=== PATIENT | male | born 1935 | race Caucasian/White ===

== ENCOUNTER 2019-06-06 05:37 | Outpatient (RCR) | payer OTHER, SELFPAY | END 2019-07-02 00:01 | LOC: ONCRAD 05:37 | PROVIDERS: Family Provider Nurse Practitioner Family; Visit Provider Radiology Radiation Oncology | DX: Z51.0 Encounter for antineoplastic radiation therapy (principal); C61 Malignant neoplasm of prostate | CPT/HCPCS: 77336; 77385 ×4 ==

== ENCOUNTER 2019-07-10 08:19 | Outpatient (RCR) | payer OTHER, SELFPAY | END 2019-08-02 23:59 | disposition home or self-care (01) | LOC: ONCMED 08:19 | PROVIDERS: Family Provider Nurse Practitioner Family; PCP Internal Medicine; Visit Provider Radiology Radiation Oncology | DX: Z76.89 Persons encountering health services in other specified circumstances (principal) ==

== ENCOUNTER 2019-08-05 05:51 | Outpatient (RCR) | payer OTHER, SELFPAY ==
[2019-08-05 09:38] LABS: Prostate Specific Antigen < 0.02 ng/mL (0-4)
[2019-08-08 16:26] LABS: Testosterone, Free 0.9 pg/mL (6.0-73.0)
== END 2019-08-31 23:59 | disposition home or self-care (01) ==
LOC: ONCMED 05:51
PROVIDERS: Family Provider Nurse Practitioner Family; PCP Internal Medicine; Visit Provider Internal Medicine Hematology & Oncology
DX: C61 Malignant neoplasm of prostate (principal); N20.0 Calculus of kidney; G89.29 Other chronic pain; M54.9 Dorsalgia, unspecified; Z79.818 Long term (current) use of other agents affecting estrogen receptors and estrogen levels; Z79.899 Other long term (current) drug therapy; Z96.649 Presence of unspecified artificial hip joint; Z92.3 Personal history of irradiation
CPT/HCPCS: 84153; 84402; G0463

== ENCOUNTER 2019-09-10 05:48 | Outpatient (RCR) | payer OTHER, SELFPAY ==
[2019-09-10 11:54] LABS: Prostate Specific Antigen < 0.02 ng/mL (0-4)
[2019-09-10 12:45] LABS: Testosterone Total 2.5 ng/dL (193-740)
--- NOTE | 2019-09-10 13:52 | ONC FU_ITS ---
Dr. Bullard follow up note Patient: Paul Rivero Unit #: [id number]: 1935 Dicatated By: Tahir Bullard M.D.Date of Visit:Sep 10, 2019 Onc Med Follow-up/Prog Note History of Present Illness: Mr. Paul Rivero, is a 83-year-old gentleman with history of elevated PSA since 2012, was under observation until recently on 12/20/2018 when his PSA gone up to 14.3 and finally underwent TRUSP/biopsy on 12/20/2018 which showed large volume 100% of 4+3 INDUSTRI[employer]ACH[employer] on both right and left, 7 cores and large-volume Omega score 4+4 at the right base, one core. Subsequently patient underwent CT scan of abdomen pelvis on 01/08/2019 which showed non-obstructing right upper pole renal calculi, and no evidence of blastic process of abdomen and pelvic bones or lymphadenopathy and bone scan done on 01/08/2019 also showed no evidence of bone metastases. As per urology evaluation, despite of patient's age he has fairly aggressive appearing prostrate cancer with large-volume Omega 8 in one core and 7 cores positive for large-volume [place] 4+3. Patient denies any bony pains patient denies any weight loss patient denies any dysuria or hematuria patient denies any poor appetite. Started on ADT with Zoladex/Casodex on 01/31/2019 and s/p concurrent radiation therapy Casodex discontinued on 05/03/2019 because of progressive hot flashes generalized weakness and fatigue and mild gynecomastia. Zoladex was also discontinued at patient's request on 05/03/2019 Came for follow-up, Complaining of generalized weakness and fatigue , gynecomastia is better but 'other' parts are still smaller. Patient is hard of hearing, denies any dysuria hematuria or new bony pains. No more hot flashes. Medications: Ibuprofen 200 mg (of 200 mg) Tablet Oral t.i.d., Multivitamin Adults 1 Tablet Oral q 7 days, Terbinafine HCl 1 Tablet (of 250 mg) Tablet Oral daily, Turmeric 1 (300 mg) Tablet Oral q 7 days Allergies: Ampicillin and Penicillins. Review of Systems: Constitutional - Appetite is good and weight is stable. No fever, chills, hot flashes, or night sweats. Energy level is fair, ENMT - Positive for sinus congestion. No mouth sores. No sore throat or difficulty swallowing, Hematologic/Lymphatic - No abnormal bruising or bleeding, Respiratory - No shortness of breath. No cough. No pleuritic pain or hemoptysis, Cardiovascular - No angina pain. No palpitations, Gastrointestinal - No nausea or vomiting. No heartburn or acid reflux. No diarrhea or constipation. No blood in the stool or black stools, Genitourinary (M) - No dysuria or hematuria. No urinary frequency. No urgency or incontinence, Musculoskeletal - Positive for joint and back pain, Neurologic - No headache or dizziness. Positive for numbness/tingling, Psychiatric - No anxiety or depression. Positive for insomnia. Vital Signs: Performed on Sep 10, 2019 13:09 Height - 69.00 in Weight - 234.0 lbs (HIGH) BSA - 2.21 sq.m BMI - 34.56 (HIGH) Temperature - 98.6 F Pulse - 88 /min Respiration - 24 /min BP - 145/77 mm(hg) (HIGH) O2 Sat - 98 % Pain - 0 Performance Status: 0 - Fully active, able to carry on all predisease activities without restrictions. (ECOG) Physical Examination: Physical Exam-Comments is not available for this patient. Lab/Imaging: Test performed on Aug 05, 2019 08:33 Testosterone, Free 0.9 pg/mL PSA < 0.02 ng/mL Test performed on May 03, 2019 08:50 Sodium 142 mmol/L Testosterone, Total < 2.5 ng/dL Potassium 3.6 mmol/L Chloride 98 mmol/L CO2 30 mmol/L Anion Gap 17.6 BUN 25 mg/dL Creatinine 1.1 mg/dL Cr Clearance (Est) 78.0600 mL/min Glucose 82 mg/dl Calcium 10.3 mg/dL Protein, Total 6.9 g/dL Albumin 4.4 g/dL Globulin 2.5 gm/dL Bilirubin, Total 0.3 mg/dL ALT (SGPT) 36 U/L AST (SGOT) 28 U/L Alkaline Phosphatase 58 U/L Impression: Prostrate cancer per biopsy/TRUSP done on 12/20/2018 which showed large volume [place] 8 in one core at right base large volume Omega score 4+3 in 7 cores, from both right and left lobes, clinical stage T 2c,N0,M0, PSA at that time of diagnosis was 14.3 CT scan of pelvis/abdomen done on 01/08/2019 showed no evidence of blastic process in abdomen and pelvis, no lymphadenopathy Nonobstructing upper pole right renal calcului. Bone scan done on same day showed no evidence of metastatic disease History of chronic back pain for which he is on disability .History of hip replacement Started on ADT with Zoladex/Casodex on 01/31/2019 s/p Concurrent radiation therapy Casodex discontinued on 05/03/2019 because of progressive generalized weakness and fatigue/hot flashes and now with gynecomastia Zoladex was discontinued after last dose given on 05/03/2019 at patient request because of related side effects, knowing the risk versus benefits Plan: Discussed with patient regarding his labs testosterone 2.5, PSA less than 0.02 Clinically, patient has no signs symptom suggestive of recurrence/progression of disease and follow-up PSA stable and less than 0.02 and testosterone is also low. Patient is complaining of generalized weakness and fatigue which could be multifactorial including but not limited to low testosterone level, considering his weight and height he may have underlying sleep apnea but patient denies. We has been having lengthy discussions regarding side effects due to low testosterone level which is a part of prostrate cancer treatment plan but somehow patient is unhappy because of related side effect due to radiation therapy and hormonal therapy which was discontinued at patient's request on 05/03/2019. In the past patient was advised to maintain active lifestyle and regular exercise Patient is following his primary care physician [facility], he was told there that his blood works looks reasonable so his symptoms could be due to prostrate cancer treatment. Patient is also having communication problems with me maybe because of my accent, patient was advised to see Dr. Treviño, medical oncologist for better communication and second opinion. Patient was also offered referred to tertiary care center for evaluation but patient declined but agreed to see Dr. Treviño. So we will transfer his care to Dr. Treviño. Signed By: Tahir Bullard M.D. <<Signature on File>>
== END 2019-10-01 23:59 | disposition home or self-care (01) ==
LOC: ONCMED 05:48
PROVIDERS: Family Provider Nurse Practitioner Family; PCP Internal Medicine; Visit Provider Internal Medicine Hematology & Oncology
DX: C61 Malignant neoplasm of prostate (principal); N20.0 Calculus of kidney; G89.29 Other chronic pain; M54.9 Dorsalgia, unspecified; Z79.899 Other long term (current) drug therapy; Z92.3 Personal history of irradiation; Z92.21 Personal history of antineoplastic chemotherapy; Z92.23 Personal history of estrogen therapy
CPT/HCPCS: 36415; 84153; 84403; G0463

== ENCOUNTER 2020-04-12 12:22 | Emergency (ER) | payer OTHER, MEDICARE, SELFPAY ==
[2020-04-12] VITALS (9 sets, daily range): BP systolic 113–179; BP diastolic 55–77; PULSE 41–66; RESP 14–99; TEMP 36.8; O2SAT 97–100; BMI 32.5
--- NOTE | 2020-04-12 12:37 | XRR_ITS ---
PROCEDURE INFORMATION: Exam: XR Chest, 1 View Exam date and time: 04/12/2020 12:38 PM Age: 84 years old Clinical indication: Other: Jaudice; Additional info: Jaundice TECHNIQUE: Imaging protocol: XR of the chest Views: 1 view. COMPARISON: No relevant prior studies available. FINDINGS: Lungs: Unremarkable. No consolidation. Pleural space: Unremarkable. No pleural effusion. No pneumothorax. Heart/Mediastinum: Unremarkable. No cardiomegaly. Bones/joints: Unremarkable. XR/XR chest 1V portable [id number] IMPRESSION: No acute findings.
--- NOTE | 2020-04-12 14:00 | CTR_ITS ---
PROCEDURE INFORMATION: Exam: CT Abdomen And Pelvis With Contrast Exam date and time: 04/12/2020 2:39 PM Age: 84 years old Clinical indication: Abdominal pain; Additional info: Abd pain/hx prostate CA TECHNIQUE: Imaging protocol: Computed tomography of the abdomen and pelvis with intravenous contrast. Radiation optimization: All CT scans at this facility use at least one of these dose optimization techniques: automated exposure control; mA and/or kV adjustment per patient size (includes targeted exams where dose is matched to clinical indication); or iterative reconstruction. Contrast material: OMNI 300; Contrast volume: 95 ml; Contrast route: INTRAVENOUS (IV); COMPARISON: [place]dom[place] o [id number] 01/08/2019 10:28 AM RADIATION DOSE METRICS: Total DLP (mGy-cm): 1446.71 FINDINGS: Liver: Findings consistent with fatty infiltration of the liver are identified. Gallbladder and bile ducts: Gallstones are identified although there are no CT findings to suggest cholecystitis. Pancreas: Normal. No ductal dilation. Spleen: Normal. No splenomegaly. Adrenals: Normal. No mass. Kidneys and ureters: There is right renal calcification. No hydronephrosis. Stomach and bowel: No bowel obstruction or wall thickening. There is stool throughout the colon. Appendix: No evidence of appendicitis. Intraperitoneal space: Unremarkable. No free air. No significant fluid collection. Vasculature: Unremarkable. No abdominal aortic aneurysm. Lymph nodes: Unremarkable. No enlarged lymph nodes. Urinary bladder: Unremarkable as visualized. Reproductive: Unremarkable as visualized. Bones/joints: There have been bilateral hip replacements which results in streak artifact.Degenerative change is identified in the spine. There is no evidence for acute fracture or malalignment. Soft tissues: There is fat in the left inguinal canal. CT/CT abdomen pelvis w con* [id number] IMPRESSION: There are no acute concerning abnormalities. Radiation Dose CTDIVOL = (mGy): DLP = 1446.71 (mGy-cm)
--- NOTE | 2020-04-12 14:00 | USR_ITS ---
PROCEDURE INFORMATION: Exam: US Abdomen, Limited; Right Upper Quadrant Exam date and time: 04/12/2020 2:01 PM Age: 84 years old Clinical indication: Other: Jaundice TECHNIQUE: Imaging protocol: US abdomen. Real time ultrasound with image documentation. Limited exam focused on the right upper quadrant. COMPARISON: CT Abdomen/Pelvis [facility] [id number] 01/08/2019 10:28 AM FINDINGS: Liver: No masses or dilated intrahepatic bowel loops seen . There is mild increased hepatic echogenicity consistent with steatosis Gallbladder: Normal. No gallstones. There is no gallbladder wall thickening. Common bile duct: Normal. No stones. No dilation. 4 mm Pancreas: Incompletely visible due to bowel gas. Right kidney: Normal. No mass. No hydronephrosis. 10.3 cm x 5.2 cm x 5.5 cm US/US gall bladder [id number] IMPRESSION: 1. Mild hepatic steatosis 2. Otherwise negative examination
--- NOTE | 2020-04-12 14:01 | W.ED.GENADLT ---
HPI - General Adult General: Chief complaint: General Medical Stated complaint: dark urined/ jaundiced x 10 days Time Seen by Provider: 04/12/20 13:33 History of Present Illness: HPI narrative: 84-year-old male presents to the emergency room with complaint of jaundice. This is been going on for the last several days. He relates it to having been on Augmentin. He has a sore at the bottom of his left forefoot. He is initially in ampicillin and Augmentin. According to some old notes he has an allergy to penicillin although I did not see in the note any description of what his allergy was. He stopped taking the Augmentin 4 days ago. He said he had initially had a rash with pruritus pruritus is still persisting but the rash is resolved. He has some diffuse mild abdominal discomfort more focused to the right upper quadrant. He is not had any vomiting he is has discolored darkened urine and alexandru colored stools. He has a history of prostate cancer he is currently completed treatment and is just on monitoring. He had previous received chemo and radiation. Onset (ago): day(s) Location: abdomen Radiation: non-radiation Severity: moderate Quality: aching Pain Consistency: intermittent Relieving factors: none Exacerbating factors: none Associated symptoms: Deny chest pain, confusion, cough, diaphoresis, decreased appetite, dyspnea, fevers/chills, headache(s), malaise, nausea, rash, palpitations, seizures, short of breath, syncope, vomiting or weakness Treatments prior to arrival: none Review of Systems Const: Denies: malaise or diaphoresis ENMT: Denies: throat pain, ear or mastoid pain, nasal discharge or nasal congestion Card: Denies: chest pain, palpitations or syncope Resp: Denies: dyspnea GI: Denies: nausea or vomiting : Denies: flank pain, dysuria, urinary frequency or urinary urgency Skin/Breast: Denies: rash Neuro: Denies: headache(s) or confusion PFSH ED PFSH: Medical History Gout Hyperlipidemia Hypertension Osteoarthritis Prostate CA Surgical History History of hip replacement, total Bilateral History of knee replacement Left History of orchiectomy Social History (Reviewed 10/11/20 @ 16:48 by RALPH Magana Smoking and tobacco status: current every day smoker Second hand smoke exposure: No Smoking risk assessment/counseling performed?: Yes Alcohol intake: current Alcohol intake frequency: few times a week Desire information about alcohol rehabilitation?: No Counseling given: No Desire information about substance/drug rehabilitation?: No Counseling given: No Adopted: No Caregiver/support person: No Lives independently: Yes Household members: spouse Housing: House Marital status: Number of children: 6 service: Yes branch: [employer] Current occupational status: retired History of recent travel: No Current gender identity: Male Physical Exam Const: COMMON NORMALS: no acute distress GENERAL APPEARANCE: cooperative and comfortable ORIENTATION/CONSCIOUSNESS: Yes awake, Yes oriented to person, Yes oriented to place and Yes oriented to time HENMT: COMMON NORMALS: normocephalic, atraumatic and hearing grossly normal bilaterally HEAD & SCALP: normocephalic and atraumatic Eye: COMMON NORMALS: Equal, round and reactive pupils present, EOMs intact bilaterally and no scleral icterus SCLERA: scleral abnormal (Icteric) PUPIL: Yes Equal, round and reactive pupils present Neck/C-Spine: COMMON NORMALS: full ROM, no lymphadenopathy, supple and no JVD Lymph: LYMPHATIC: no lymphadenopathy noted and no lymphedema noted Resp: COMMON NORMALS: normal respiratory effort, No retractions, No use of accessory muscles and clear to auscultation bilaterally AUSCULTATION: clear to auscultation bilaterally Cardio: COMMON NORMALS: no JVD, regular rate, regular rhythm and No murmurs present (Cardio) RATE: regular rate RHYTHM: regular rhythm GI: COMMON NORMALS: No hepatosplenomegaly present AUSCULTATION: Yes normoactive bowel sounds PALPATION: Yes Tenderness to palpation present (GI) Details: RUQ, No Guarding due to palpation present (GI) and Yes No hepatosplenomegaly present Extremity: COMMON NORMALS: normal to inspection, capillary refill normal, no clubbing, cyanosis or edema, no calf tenderness and no pedal edema NARRATIVE EXTREMITY EXAM: Sole of left foot there is desquamation of the dermis with some healing eschar is mostly mucousy there is no evidence of infection at this time. Does not appear to be any exposure the subdermal tissues. Neuro: SENSORIUM/ORIENTATION: Yes oriented to person, Yes oriented to place and Yes oriented to time Skin: GENERAL SKIN EXAM: jaundice Course Vital Signs: Vital signs: Vital Signs Temperature 98.2 F 04/12/20 12:30 Pulse Rate 43 L 04/12/20 17:19 Respiratory Rate 16 04/12/20 17:19 Blood Pressure 158/77 04/12/20 17:19 Pulse Oximetry 100 04/12/20 17:19 MDM - General Adult MDM Narrative: Medical decision making narrative: Offered patient admission is concerned about his severe bradycardia he was down in the 40s several times where he is not on any negative inotropic's. He declines and would prefer to go home. Suspect his jaundice and liver function changes are due to the Augmentin will have him stop that the foot does not appear to be infected at this point we will get him set up for the wound care clinic and also have him set up to have a Holter monitor. Lab Data: Labs: Lab Results 04/12/20 04/12/20 04/12/20 Range/Units 13:40 13:40 13:40 WBC 5.3 (4.0-10.0) 10^3/ uL RBC 4.12 (4.1-5.3) 10^6/u L Hgb 12.7 (11.7-16.6) g/dL Hct 40.2 L (42.0-52.0) % MCV 97.6 H (80-94) fL MCH 30.8 (28.0-34.0) pg MCHC 31.6 (30.0-36.0) g/dL RDW 15.9 H (12.1-15.1) % Plt Count 191 (130-400) 10^3/c mm MPV 11.6 H (7.4-10.4) fL Neut % (Auto) 61.8 % Lymph % (Auto) 17.0 % Gooding % (Auto) 10.8 % Eos % (Auto) 7.9 % Baso % (Auto) 0.8 % Neut # (Auto) 3.28 (1.8-7.7) 10^3/u L Lymph # (Auto) 0.9 (0.8-4.8) 10^3/u L Gooding # (Auto) 0.6 (0.2-0.9) 10^3/u L Eos # (Auto) 0.4 (0.0-0.8) 10^3/u L Baso # (Auto) 0.0 (0.0-0.1) 10^3/u L Nucleated RBC % (a uto) 0 % Nucleated RBCs # 0.0 /100WBC PT 12.00 L (12.1-14.9) SECO NDS INR 0.86 (0.8-1.2) APTT 28.7 (23.9-36.7) SECO NDS Sodium 139 (136-145) mmol/L Potassium 4.0 (3.5-5.1) mmol/L Chloride 107 (98-107) mmol/L Carbon Dioxide 21 L (22-29) mmol/L Anion Gap 15.0 (5-19) BUN 25 H (8-23) mg/dL Creatinine 0.8 (0.7-1.2) mg/dL GFR Calculation Not Reportable Glucose 100 (65-115) mg/dL Calculated Osmolal ity 292 (285-295) mOsm/k g Lactate (0.5-2.2) mmol/L Calcium 9.7 (8.5-10.5) mg/dL Total Bilirubin 4.5 H (0.15-1.2) mg/dL AST 148 H (0-40) U/L ALT 310 H (0-41) U/L Alkaline Phosphata se 294 H (40-130) IU/L Creatine Kinase 140 (39-308) U/L Total Protein 6.6 (6.6-8.7) g/dL Albumin 4.1 (3.5-5.2) g/dL Globulin 2.5 (1.3-4.6) g/dL Lipase 61 H (13-60) U/L Urine Color (Yellow) Urine Appearance (CLEAR) Urine pH (5-7) Ur Specific Gravit y (1.005-1.030) Urine Protein (Negative) Urine Glucose (UA) (Normal) Urine Ketones (Negative) Urine Blood (Negative) Urine Nitrate (Negative) Urine Bilirubin (Negative) Urine Urobilinogen (Negative) mg/dL Ur Leukocyte Trice ase (Negative) Hepatitis A IgM Ab (Nonreactive) Hep Bs Antigen (Nonreactive) Hep B Core IgM Ab (Nonreactive) Hepatitis C Antibo dy (Nonreactive) 04/12/20 04/12/20 04/12/20 Range/Units 13:40 13:40 14:08 WBC (4.0-10.0) 10^3/ uL RBC (4.1-5.3) 10^6/u L Hgb (11.7-16.6) g/dL Hct (42.0-52.0) % MCV (80-94) fL MCH (28.0-34.0) pg MCHC (30.0-36.0) g/dL RDW (12.1-15.1) % Plt Count (130-400) 10^3/c mm MPV (7.4-10.4) fL Neut % (Auto) % Lymph % (Auto) % Gooding % (Auto) % Eos % (Auto) % Baso % (Auto) % Neut # (Auto) (1.8-7.7) 10^3/u L Lymph # (Auto) (0.8-4.8) 10^3/u L Gooding # (Auto) (0.2-0.9) 10^3/u L Eos # (Auto) (0.0-0.8) 10^3/u L Baso # (Auto) (0.0-0.1) 10^3/u L Nucleated RBC % (a uto) % Nucleated RBCs # /100WBC PT (12.1-14.9) SECO NDS INR (0.8-1.2) APTT (23.9-36.7) SECO NDS Sodium (136-145) mmol/L Potassium (3.5-5.1) mmol/L Chloride (98-107) mmol/L Carbon Dioxide (22-29) mmol/L Anion Gap (5-19) BUN (8-23) mg/dL Creatinine (0.7-1.2) mg/dL GFR Calculation Glucose (65-115) mg/dL Calculated Osmolal ity (285-295) mOsm/k g Lactate 0.7 (0.5-2.2) mmol/L Calcium (8.5-10.5) mg/dL Total Bilirubin (0.15-1.2) mg/dL AST (0-40) U/L ALT (0-41) U/L Alkaline Phosphata se (40-130) IU/L Creatine Kinase (39-308) U/L Total Protein (6.6-8.7) g/dL Albumin (3.5-5.2) g/dL Globulin (1.3-4.6) g/dL Lipase (13-60) U/L Urine Color Dark yellow (Yellow) Urine Appearance Clear (CLEAR) Urine pH 5 (5-7) Ur Specific Gravit y 1.020 (1.005-1.030) Urine Protein Neg (Negative) Urine Glucose (UA) Norm (Normal) Urine Ketones Negative (Negative) Urine Blood Neg (Negative) Urine Nitrate Negative (Negative) Urine Bilirubin 1+ H (Negative) Urine Urobilinogen 4 H (Negative) mg/dL Ur Leukocyte Trice ase Negative (Negative) Hepatitis A IgM Ab Non-reactive (Nonreactive) Hep Bs Antigen Non-reactive (Nonreactive) Hep B Core IgM Ab Non-reactive (Nonreactive) Hepatitis C Antibo dy Non-reactive (Nonreactive) Discharge Plan Discharge Patient Disposition: Home Clinical Impression: Jaundice, Pressure ulcer, Medication side effect, Bradycardia Condition: Stable Prescriptions: Discontinued amoxicillin-pot clavulanate [Augmentin] 875-125 mg tablet 1 tab PO Q12H Qty: 24 RF: 0 No Action acetaminophen-codeine 300-30 mg tablet 1 tab PO Q8H PRN (Reason: pain) Qty: 24 RF: 0 silver sulfadiazine [Silvadene] 1 % cream 1 applic TOPICAL BID PRN (Reason: wound healing) Qty: 400 RF: 0 Senior Probiotic 15 billion cell capsule 15,000 mmu cells PO .2 times day Qty: 60 RF: 1 MediHoney (honey) 100 % paste 1 applic TOPICAL BID Qty: 528 RF: 2 Discharge Orders: Discharge Order (Routine); Ordered 04/12/20 Ordered By: Terry Jalloh Referrals: Kings Avendano [Primary Care Provider] - Kimberley Chun [Family Provider] - Activity Restrictions/Additional Instructions: Stop Augmentin. Case management will call for referral to the wound care clinic as well as to set up a 24-hour Holter monitor. If symptoms worsen or change recheck in the emergency room. Follow-up with your primary care doctor to recheck a liver function profile in 1 week. Discharge Date/Time: 04/12/20 17:05 Coding Level of Care Code ED Chemical Etching Processor for Chg Fwd Exam Comprehensive
[2020-04-12 14:04] LABS: Basophils % 0.8 %; Eosinophils # 0.4 10^3/uL (0.0-0.8); Eosinophils % 7.9 %; Hematocrit 40.2 % (42.0-52.0); Hemoglobin 12.7 g/dL (11.7-16.6); Lymphocytes # 0.9 10^3/uL (0.8-4.8); Mean Corpuscular HGB Conc 31.6 g/dL (30.0-36.0); Mean Corpuscular Hemoglobin 30.8 pg (28.0-34.0); Mean Corpuscular Volume 97.6 fL (80-94); Mean Platelet Volume 11.6 fL (7.4-10.4); Monocytes # 0.6 10^3/uL (0.2-0.9); Monocytes % 10.8 %; Neutrophils # 3.28 10^3/uL (1.8-7.7); Neutrophils % 61.8 %; Nucleated Red Blood Cells % 0 %; Platelet Count 191 10^3/cmm (130-400); Red Blood Count 4.12 10^6/uL (4.1-5.3); Red Cell Distribution Width 15.9 % (12.1-15.1); White Blood Count 5.3 10^3/uL (4.0-10.0)
[2020-04-12 14:13] LABS: Add Urine Microscopic? NO
[2020-04-12 14:34] LABS: Alanine Aminotransferase 310 U/L (0-41); Albumin Level 4.1 g/dL (3.5-5.2); Alkaline Phosphatase 294 IU/L (40-130); Blood Urea Nitrogen 25 mg/dL (8-23); Calcium 9.7 mg/dL (8.5-10.5); Carbon Dioxide 21 mmol/L (22-29); Chloride 107 mmol/L (98-107); Creatine Phosphokinase 140 U/L (39-308); Globulin 2.5 g/dL (1.3-4.6); Glucose 100 mg/dL (65-115); Lactate (Lactic Acid level) 0.7 mmol/L (0.5-2.2); Lipase 61 U/L (13-60); Osmolality Calculated 292 mOsm/kg (285-295); Sodium 139 mmol/L (136-145); Total Bilirubin 4.5 mg/dL (0.15-1.2); Total Protein 6.6 g/dL (6.6-8.7)
[2020-04-12 14:38] LABS: Aspartate Amino Transferase 148 U/L (0-40)
[2020-04-12 14:44] LABS: INR 0.86 (0.8-1.2)
[2020-04-12 14:45] LABS: Partial Thromboplastin Time 28.7 SECONDS (23.9-36.7)
[2020-04-12 14:49] LABS: Bilirubin Urine 1+ (Negative); Blood Urine Neg (Negative); Glucose Urine UA Norm (Normal); Ketones Urine Negative (Negative); Leukocyte Esterase Urine Negative (Negative); Nitrate Urine Negative (Negative); Protein Urine Neg (Negative); Urine Appearance Clear (CLEAR); Urine Color Dark Yellow (Yellow); Urobilinogen Urine 4 mg/dL (Negative); pH Urine 5 (5-7)
[2020-04-12] MEDS: iohexol 300 mg/mL 100 mL Btl IV (15:17)
[2020-04-12 16:19] LABS: Hepatitis A Antibody IgM Non-Reactive (Nonreactive); Hepatitis B Core IgM Non-Reactive (Nonreactive); Hepatitis B Surface Antigen Non-Reactive (Nonreactive); Hepatitis C Virus Antibody Non-Reactive (Nonreactive)
--- NOTE | 2020-04-12 16:27 | ECG_ITS ---
[facility] Test Date: 2020-04-12 Pat Name: Paul Rivero Department: Room: Gender: Male Biology Teacher: : 1935 Requested By: Terry Mcfadden Order Number: [id number] Maycol MD: Brie Barcenas M.D. Measurements Intervals [place] Rate: 40 P: 28 OH: 316 QRS: -22 QRSD: 97 T: -10 QT: 459 QTc: 377 Interpretive Statements SINUS BRADYCARDIA WITH FIRST DEGREE AV BLOCK LOW QRS VOLTAGE IN PRECORDIAL LEADS [QRS DEFLECTION < 1.0 mV IN CHEST LEADS] MODERATE VOLTAGE CRITERIA FOR LVH, CONSIDER NORMAL VARIANT [MEETS CRITERIA IN ONE OF: R(aVL), S(V1), R(V5), R(V5/V6)+S(V1)] POSSIBLE ANTERIOR MYOCARDIAL INFARCTION [30 ms Q WAVE IN V3/V4, OR R < 0.2 mV IN V4], PROBABLY OLD No previous ECG available for comparison Electronically Signed On 04-12-2020 18:10:24 CDT by Brie Barcenas M.D. [id number]
[2020-04-12] MEDS: sodium chloride 0.9% 1,000 ML 999 ML IV ×2 (16:30→16:57)
--- NOTE | 2020-04-13 09:57 | DCPLANNER ---
manager restaurant had message to schedule a follow up appointment with [facility]. manager restaurant called [facility], spoke with Donita, a follow up appointment was scheduled for April at 10:00 with Kait. manager restaurant called patient and informed patient of the scheduled appointment. manager restaurant also had message to schedule a follow up appointment for an out patient 24 hour premier healthter monitor. manager restaurant faxed order to [facility], will call for appointment information.
--- NOTE | 2020-04-15 10:52 | DCPLANNER ---
manager leasing called [facility] to confirm if an appointment had been scheduled for a halter monitor. manager leasing spoke with Marisol, was told that patient does not want monitor at this time.
--- NOTE | 2020-04-29 13:57 | DCPLANNER ---
Patient had a follow up appointment for patient with Wound Care - appointment was cancelled.
== END 2020-04-12 17:05 | disposition home or self-care (01) ==
PROVIDERS: Nurse Practitioner Family; Emergency Provider Family Medicine; Family Provider Nurse Practitioner Family; PCP Internal Medicine
DX: R17 Unspecified jaundice (principal); L89.899 Pressure ulcer of other site, unspecified stage; R00.1 Bradycardia, unspecified; T50.905A Adverse effect of unspecified drugs, medicaments and biological substances, initial encounter; E78.5 Hyperlipidemia, unspecified; I10 Essential (primary) hypertension; Z85.46 Personal history of malignant neoplasm of prostate; F17.210 Nicotine dependence, cigarettes, uncomplicated
CPT/HCPCS: 12345; 71045; 74177; 76705; 80053; 80074; 81003; 82550; 83605; 83690; 85025; 85610; 85730; 93005; 96360; 99283; 99284; J7030; Q9967

== ENCOUNTER → 2020-04-21 08:06 | Outpatient (BNVA) | payer MEDICARE, OTHER, SELFPAY | PROVIDERS: Family Provider Nurse Practitioner Family; PCP Nurse Practitioner; Visit Provider Nurse Practitioner | DX: R74.8 Abnormal levels of other serum enzymes (principal) | CPT/HCPCS: 80076 ==

== ENCOUNTER → 2020-04-23 15:00 | Outpatient (BNVA) | payer MEDICARE, OTHER, SELFPAY | PROVIDERS: Family Provider Nurse Practitioner Family; PCP Nurse Practitioner; Visit Provider Nurse Practitioner | DX: Z11.59 Encounter for screening for other viral diseases (principal); R74.8 Abnormal levels of other serum enzymes; R94.5 Abnormal results of liver function studies | CPT/HCPCS: 86705; 86706; 86709; 86803; 87340 ==

== ENCOUNTER 2020-04-28 13:18 | Outpatient (CLI) | payer OTHER, SELFPAY ==
[2020-04-28 14:51] LABS: Basophils % 0.3 %; Eosinophils % 0.6 %; Hematocrit 39.6 % (42.0-52.0); Hemoglobin 12.6 g/dL (11.7-16.6); Lymphocytes # 0.7 10^3/uL (0.8-4.8); Lymphocytes % 10.8 %; Mean Corpuscular HGB Conc 31.8 g/dL (30.0-36.0); Mean Corpuscular Hemoglobin 30.6 pg (28.0-34.0); Mean Corpuscular Volume 96.1 fL (80-94); Mean Platelet Volume 11.2 fL (7.4-10.4); Monocytes # 0.4 10^3/uL (0.2-0.9); Monocytes % 5.7 %; Neutrophils # 5.63 10^3/uL (1.8-7.7); Neutrophils % 81.7 %; Nucleated Red Blood Cells % 0 %; Platelet Count 229 10^3/cmm (130-400); Red Blood Count 4.12 10^6/uL (4.1-5.3); Red Cell Distribution Width 13.9 % (12.1-15.1); White Blood Count 6.9 10^3/uL (4.0-10.0)
[2020-04-28 16:59] LABS: Testosterone Total 2.5 ng/dL (193-740); Thyroid Stimulating Hormone 1.47 uIU/mL (0.27-4.20)
[2020-04-28 17:12] LABS: Alanine Aminotransferase 127 U/L (0-41); Albumin Level 4.2 g/dL (3.5-5.2); Alkaline Phosphatase 188 IU/L (40-130); Anion Gap 11.4 (5-19); Aspartate Amino Transferase 61 U/L (0-40); Blood Urea Nitrogen 26 mg/dL (8-23); Calcium 10.5 mg/dL (8.5-10.5); Carbon Dioxide 29 mmol/L (22-29); Chloride 104 mmol/L (98-107); Globulin 2.4 g/dL (1.3-4.6); Glucose 230 mg/dL (65-115); Osmolality Calculated 302 mOsm/kg (285-295); Potassium 4.4 mmol/L (3.5-5.1); Sodium 140 mmol/L (136-145); Total Bilirubin 0.8 mg/dL (0.15-1.2); Total Protein 6.6 g/dL (6.6-8.7)
[2020-04-28 17:15] LABS: Prostate Specific Antigen 0.006 ng/mL (0-4)
--- NOTE | 2020-04-28 18:01 | ONC CON_ITS ---
Dr. Treviño New Patient Note Patient: Paul Rivero Unit #: [id number]: 1935 Dicatated By: Robb Treviño M.D.Date of Visit: Apr 28, 2020 Onc MED New Patient/Consult Referring Physician: Dr. Bladimir Mayfield M.D. Chief Complaint: Prostrate cancer History of Present Illness: This is an 84 year-old man with Omega score 7 (4+3) adenocarcinoma of the prostate, by clinical evaluation stage IIC (T2c, N0, M0), baseline PSA 14.35 ng/mL. He was known to have elevated PSA since 2012 and was under observation until recently, on 11/28/2018 when his PSA increased to 14.35 ng/mL. 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 Also present was large-volume Omega score 4+4 at the right base, [address] scan of abdomen pelvis on 01/08/2019 showed non-obstructing right upper pole renal calculi, and no evidence of blastic process of abdomen and pelvic bones or lymphadenopathy and bone scan done on 01/08/2019 also showed no evidence of bone metastases. As per urology evaluation, despite of patient's age he had fairly aggressive appearing prostrate cancer with large-volume Pittsfield 8 in 1 core and 7 cores positive for large-volume [place] 4+3, and he was recommended to undergo radiation with or without hormonal therapy. He began androgen deprivation therapy with Zoladex/Casodex on 01/31/2019. He began radiation on 04/03/2019. He received a second dosage of Zoladex on 05/03/2019. His PSA had declined to 0.04 ng/mL and his testosterone level was less than 2.5 ng/dL. At that point the Casodex was discontinued due to progressive hot flashes generalized weakness and fatigue and mild gynecomastia. He also opted not to have any further treatment with Zoladex. He completed radiation on 06/06/2019 to a total dose of 7900 cGy. His subsequent clinical course was complicated by fatigue and musculoskeletal pain, particularly in the hips, and by ongoing problems with gynecomastia and genital changes. He also complained of increased fat distribution in his abdominal area but without associated weight gain. His other medical illnesses include hypertension, hypothyroidism, GERD, degenerative arthritis, and gout. His prior surgeries include left total knee replacement, left total hip replacement, and right total hip replacement x2. He also had rotator cuff repair on the left and twice on the right. He has had a vertebral stabilization procedure. He is a non-smoker. INTERIM HISTORY: On 04/12/2020 he presented to the emergency room complaining of jaundice. At the time, he had been taking Augmentin for possible cellulitis associated with blisters on his left foot, and he also complained of having an itchy skin eruption due to ampicillin allergy. His CHEM profile did show significantly elevated total bilirubin at 4.5 mg/dL as well as significant elevation of liver enzymes, SGOT 148/40 U/L, SGPT 310/41 U/L, and alkaline phosphatase 294/130 IU/L. There were no acute findings noted on CT abdomen/pelvis or gallbladder ultrasound. He attributed it to the Augmentin, and he declined any further evaluation. He is seen now for a follow-up visit. He still has limited activity due to the problems with his left foot, but he says it is getting better. He says the skin eruption is also getting better, though it has not completely resolved. He has good appetite. He has no fever, night sweats, or hot flashes. He does not complain of shortness of breath, cough, or chest pain. He has no GI complaints. He does have frequent urination and nocturia, and he typically voids about every 2 hours. He has no dysuria or hematuria. He still has some joint pain and stiffness in his hands as well as some numbness/tingling, but he says that is also gradually improving since he has been off allopurinol. Past Medical History: His medical history consists of gastroesophageal reflux disease, gout, hypertension, hypothyroidism, and osteoarthritis. Past Surgical History: His surgical/procedural history consists of colonoscopy, left rotator cuff repair, left total knee replacement, right orchiectomy, right rotator cuff repair x 2, tonsillectomy, total left hip replacement, total right hip replacement x 2, vertebral stabilization, and TURSP / Biospy in 2019. Medications: Acidophilus 1 Capsule Oral daily, Daily Vitamin 1 Tablet Oral daily, Multivitamin Adults 1 Tablet Oral q 7 days, Turmeric 1 (300 mg) Tablet Oral q 7 days Allergies: Ampicillin and Penicillins. Social History: Mr. Rivero is and he is retired. Mr. Rivero has never smoked. He has no history of drinking. Family History: Mr. Rivero's mother at age 97: natural. Mr. Rivero's father at age 77: old age. Review Of Symptoms: Constitutional - His energy is fine, but he has limited activity due to his foot. Appetite is good and weight is stable. No fever, night sweats, or hot flashes. ECOG score is 1, ENMT - He has hearing loss. He has some sinus congestion/drainage. No mouth sores. No sore throat or difficulty swallowing, Hematologic/Lymphatic - No abnormal bruising or bleeding, Respiratory - No shortness of breath. No cough. No pleuritic pain or hemoptysis, Cardiovascular - No angina pain. No palpitations, Gastrointestinal - No nausea or vomiting. No heartburn or acid reflux. No diarrhea or constipation. No blood in the stool or black stools, Genitourinary (M) - No dysuria or hematuria. He has urinary frequency and nocturia. No urgency or incontinence, Musculoskeletal - He had developed significant joint pain and limited mobility in his hands/fingers when he was on allopurinol. It has gradually improved since he stopped the medication. He reports no other joint or bone pain, Integumentary - He has been undergoing treatment for painful blisters on the plantar aspect of his left foot, Neurologic - No headache or dizziness. He has numbness/tingling in both hands. No other focal neurologic symptoms, Psychiatric - No anxiety or depression. He has a little trouble sleeping. Vital Signs: Performed on Apr 28, 2020 13:59: 0, 33.11 (HIGH), 2.17 sq.m, 69.00 in, 98 %, 66 /min, 20 /min, 140/60 mm(hg), 97.5 F (LOW), 224.2 lbs (LOW), and Performed on Apr 30, 2019 09:15: 0. Physical Examination: Constitutional - He looks pretty good generally, Eyes - Sclerae nonicteric. Conjunctivae clear, ENMT - No lesions noted in the oral cavity, Hematologic/Lymphatic - No cervical or clavicular adenopathy, Respiratory - Lungs are clear with good air movement bilaterally, Cardiovascular - Heart rhythm is regular. There is no murmur, gallop, or rub noted, Breasts - There is mild to moderately severe gynecomastia bilaterally. There are no breast masses noted. There is no axillary adenopathy noted, Abdomen - Mildly distended and firm. Liver and spleen are not enlarged. There is no abdominal mass or ascites noted and there is no inguinal adenopathy, Extremities - No edema, Integumentary - He has some residual erythema in the intertriginous area beneath both breasts. The left foot blisters are almost completely healed, Neurologic - No focal neurologic deficits noted. Impression: 1. Patient with [place] score 7 (4+3) adenocarcinoma of the prostate, by clinical evaluation stage IIC (T2c, N0, M0), baseline PSA 14.35 ng/mL. 2. He began androgen deprivation therapy with Zoladex/Casodex on 01/31/2019. He had a very good response by PSA level. He received a second dose of Zoladex on 05/03/2019, but Casodex at that point was discontinued and he received no further Zoladex injections. 3. He began radiation to the prostate on 04/03/2019. He completed treatment on 06/06/2019 to a total dose of 7900 cGy. 4. On 04/12/2020 he presented to the emergency room with jaundice, total bilirubin 4.5 mg/dL. A specific cause for this was not determined. There were no acute findings noted on CT abdomen/pelvis or gallbladder ultrasound. At the time he had experienced a suspected allergic reaction to Augmentin. His other medical illnesses include: 5. Hypertension. 6. Hypothyroidism. 7. GERD. 8. Degenerative arthritis. 9. He has a history of gout. Patient had experienced multiple side effects with his androgen deprivation therapy. Some of these have persisted, including gynecomastia, genitalia changes, and alteration in his fat distribution. He also complains of muscle weakness/wasting. As of his follow-up visit in May 2019, he did appear to be showing a very good response to the treatment by PSA level. Plan: He will need reassessment of his prostate cancer and he will need follow-up for the recent episode of jaundice. He will have additional laboratory studies today to include CBC, comprehensive metabolic profile, TSH level, PSA level, and total testosterone level. He will have further evaluation as indicated. Signed By: Robb Treviño M.D. <<Signature on File>>
== END 2020-04-28 13:19 | disposition home or self-care (01) ==
LOC: ONCMED 13:22
PROVIDERS: PCP Nurse Practitioner; Visit Provider Internal Medicine Medical Oncology
DX: C61 Malignant neoplasm of prostate (principal); R17 Unspecified jaundice; M62.81 Muscle weakness (generalized); M62.50 Muscle wasting and atrophy, not elsewhere classified, unspecified site; N62 Hypertrophy of breast; N50.89 Other specified disorders of the male genital organs; T45.1X5D Adverse effect of antineoplastic and immunosuppressive drugs, subsequent encounter; I10 Essential (primary) hypertension; E03.9 Hypothyroidism, unspecified; K21.9 Gastro-esophageal reflux disease without esophagitis; M19.90 Unspecified osteoarthritis, unspecified site; Z87.39 Personal history of other diseases of the musculoskeletal system and connective tissue; Z92.3 Personal history of irradiation
CPT/HCPCS: 36415; 80053; 84153; 84403; 84443; 85025; 99215

== ENCOUNTER → 2020-05-25 07:54 | Outpatient (BNVA) | payer MEDICARE, OTHER, SELFPAY | PROVIDERS: PCP Nurse Practitioner; Visit Provider Nurse Practitioner | DX: R74.8 Abnormal levels of other serum enzymes (principal) | CPT/HCPCS: 80053 ==

== ENCOUNTER 2020-11-24 09:06 | Outpatient (CLI) | payer MEDICARE, OTHER, SELFPAY ==
--- NOTE | 2020-11-24 09:13 | USCV_ITS ---
Paul Rivero Age: 85 Gender: M : 1935 Exam Date: 11/24/2020 09:25 Ordering Phys: Isaura Sung MD Technologist: Exam Location: [facility] [place] Indication: DIZZINESS Risk Factors: Previous Vascular Surgery: Right Brachial BP: / Left Brachial BP: / Right Left Velocity (cm/s) Spectral Plaque Velocity (cm/s) Spectral Plaque Syst/Diast Broadening Syst/Diast Broadening 83.80/ 18.70 Prox CCA 122.40/ 13.20 72.20/ 12.65 Mid CCA 105.80/ 20.90 72.80/ 14.30 Distal CCA 86.00 / 12.10 62.80/ 14.30 Prox ICA 74.45 / 13.20 84.90/ 23.20 Mid ICA 76.10 / 19.80 78.30/ 13.20 Distal ICA 65.10 / 17.60 140.00 ECA 83.80 0.87 ICA/CCA 0.65 Antegrade Vertebral Antegrade 32.60/ 9.30 cm/s 31.00/ 8.50 cm/s Bi Subclavian 77.70 84.60 FINDINGS Comparison: none available. No significant elevation of systolic or diastolic velocities. Waveforms are normal. Minimal bilateral plaque with no elevation of velocity. CONCLUSIONS Bilateral ICA stenosis less than 50%. Mild carotid atherosclerosis. Dr. Aracelis Rivas DO (Electronically Signed) Final Date: 24 Nov 2020 10:55 S
== END 2020-11-24 09:07 | disposition home or self-care (01) ==
LOC: RAD 09:09
PROVIDERS: PCP Nurse Practitioner; Visit Provider Family Medicine
DX: R42 Dizziness and giddiness (principal)
CPT/HCPCS: 93880

== ENCOUNTER 2021-03-23 08:56 | Outpatient (CLI) | payer MEDICARE, OTHER, SELFPAY ==
--- NOTE | 2021-03-23 08:45 | USCV_ITS ---
Paul Rivero Age: 85 Gender: M : 1935 Exam Date: 03/23/2021 09:13 Ordering Phys: Tonia Solis GENERAL ACCOUNTANT-C Technologist: Lori Park Exam Location: [facility] [place] Indication: OTHER, NON SPECIFIED SOFT TISSUE DISORDER HISTORY: fungal infection LLE. PROCEDURES: Venous duplex imaging was performed in only the left lower extremity. The following venous structures were evaluated: common femoral vein, profunda vein, proximal portion of the greater saphenous vein, superficial femoral vein, and the popliteal vein. In addition, the posterior tibial and peroneal trunk were evaluated. FINDINGS: negative for lower extremity DVT in LLE. CONCLUSIONS No evidence of left lower extremity DVT. Agustín Levy MD (Electronically Signed) Final Date: 23 March 2021 17:11 S
== END 2021-03-23 08:57 | disposition home or self-care (01) ==
PROVIDERS: PCP Nurse Practitioner; Visit Provider Nurse Practitioner Family
DX: M79.89 Other specified soft tissue disorders (principal); M79.605 Pain in left leg
CPT/HCPCS: 93971

== ENCOUNTER → 2021-06-11 08:41 | Outpatient (BNVA) | payer MEDICARE, OTHER, SELFPAY | PROVIDERS: PCP Nurse Practitioner; Visit Provider Nurse Practitioner Family | DX: M25.50 Pain in unspecified joint (principal) | CPT/HCPCS: 80053; 84443; 84550; 85025; 85651; 86038; 86140; 86200; 86431 ==

== ENCOUNTER → 2021-07-15 14:50 | Outpatient (BNVA) | payer MEDICARE, OTHER, SELFPAY | PROVIDERS: PCP Specialist; Visit Provider Urology | DX: C61 Malignant neoplasm of prostate (principal); R97.20 Elevated prostate specific antigen [PSA] | CPT/HCPCS: 81003; 84153 ==

== ENCOUNTER 2021-09-03 09:56 | Outpatient (CLI) | payer MEDICARE, OTHER, SELFPAY ==
--- NOTE | 2021-09-03 10:14 | CT_ITS ---
WS: [id number] CT TEMPORAL BONES WITHOUT CONTRAST HISTORY: H66.92 - Otitis media, unspecified, left ear TECHNIQUE: Axial 1.25 mm imaging is performed through the temporal bones. High resolution 0.63 mm ref ormats were then submitted in axial, coronal and sagittal planes. DLP: 415.03 mGy-cm. All CT scans at [facility] use at least one of these dose optimization techniques: automated e xposure control; mA and/or kV adjustment per patient size (includes targeted exams where dose is matc hed to clinical indication); or iterative reconstruction. COMPARISON: 04/14/2017 RIGHT temporal bone: The mastoid air cells are well opacified with only coalescence of a few of the a ir spaces. There is no soft tissue surrounding the inner ear ossicles. There is no evidence for valentina steatoma. There is no dehiscence of the bone. No dehiscence of the carotid canal. Small amount of flu id seen within the mastoid air cells on the prior study has resolved. LEFT temporal bone: Increased soft tissue now extends throughout the LEFT mastoid air cells. New sinc e the prior examination. There is mild coalescence of the pneumatized portion of the mastoid bone. Th ere is a very small amount of soft tissue surrounding the inner ear ossicle. There is mild thickening of the tympanic membrane. There is a small amount of increased soft tissue along the incus and exten ding into Prussak space. Head of the malleus is normal. The tegmen mastoideum is intact. No osseous d estruction or dehiscence. CT/CT temporal bone wo con* [id number] IMPRESSION: 1. LEFT temporal bone: new very minimal soft tissue partially encasing the mid dle ear ossicles and extending into Prussak space. Additional mild thickening a long the tympanic membrane with increasing soft tissue throughout the mastoid a ir cells. Findings are very suspicious for early changes of cholesteatoma. Dog Daycare Provider marco a and early changes of otomastoiditis may also be considered. No bone destruc tion at this time. 2. Normal RIGHT middle ear ossicles. Previously described fluid in the RIGHT m astoid air cells has resolved.
== END 2021-09-03 09:57 | disposition home or self-care (01) ==
PROVIDERS: PCP Family Medicine; Visit Provider Otolaryngology
DX: H66.92 Otitis media, unspecified, left ear (principal)
CPT/HCPCS: 70480

== ENCOUNTER 2021-10-29 07:45 | Emergency (ER) | payer OTHER, MEDICARE, SELFPAY ==
[2021-10-29 08:02] VITALS: BP 138/60; PULSE 60; RESP 16; O2SAT 98; BMI 32.5
[2021-10-29 08:30] VITALS: BP 144/64; PULSE 55; O2SAT 93
--- NOTE | 2021-10-29 08:32 | ED_ITS ---
HPI - Ear Problem General: Chief complaint: Ear Stated complaint: left ear bleeding Time Seen by Provider: 10/29/21 07:45 History of Present Illness: Patient states that his left ear had some pus and blood this morning. He is currently under treatment by Dr. Jiang for chronic left ear problem. Patient said did not know if we had any drops of make his ear quite hurt. He has plenty of antibiotic drops. He says his ear is actually not hurting now and is not draining more. He said he did clean it with hydrogen peroxide earlier today. He said a couple pains yesterday but none until this morning when it was severe. Associated symptoms: Reports ear or mastoid pain; Denies fever(s) or headache(s) Review of Systems Const: Denies: fever(s), chills or body aches Eyes: Denies: eye discomfort ENMT: Reports: ear or mastoid pain and ear discharge (Left ear, chronic); Denies: throat pain, odynophagia, change in hearing, nasal congestion or nasal obstruction Card: Denies: chest pain Resp: Denies: dyspnea GI: Denies: abdominal pain, nausea or vomiting Skin/Breast: Denies: rash Neuro: Denies: headache(s) Psych: Denies: depression or suicidal ideation PFSH ED PFSH: Medical History Gout Hyperlipidemia Hypertension Osteoarthritis Prostate CA Surgical History History of hip replacement, total Bilateral History of knee replacement Left History of orchiectomy Family History Mother , at age 97 Bowel obstruction Father , at age 77 No problems noted. Social History Smoking and tobacco status: never smoked Alcohol intake: current Alcohol intake frequency: holidays/special occasions only Marital status: Number of children: 6 service: Yes branch: [employer] Current occupational status: retired History of recent travel: No Physical Exam Const: COMMON NORMALS: no acute distress HENMT: COMMON NORMALS: external ears normal and EAC's normal EXTERNAL EAR: Yes external ears normal EXTERNAL AUDITORY CANAL: EAC's normal TYMPANIC MEMBRANE: TM abnormal TM laterality: left (Slightly hard to visualize. No redness or pus noted presently.) Details: other (I cannot see a ruptured TM) Resp: COMMON NORMALS: normal respiratory effort Course Vital Signs: Vital signs: Vital Signs Pulse Rate 55 L 10/29/21 08:30 Respiratory Rate 16 10/29/21 08:02 Blood Pressure 144/64 10/29/21 08:30 Pulse Oximetry 93 10/29/21 08:30 MDM - Ear Medical Decision Making Chronic left TM rupture with sporadic purulent drainage treated by Dr. Jiang and will continue to be treated. Patient has antibiotics drops at home. Patient declines pain medication. Discharge Plan Discharge Patient Disposition: Home Clinical Impression: Chronic mastoiditis, left ear Condition: Stable Prescriptions: No Action tamsulosin [Flomax] 0.4 mg capsule 0.4 mg PO DAILY 0RF celecoxib [Celebrex] 200 mg capsule 200 mg PO DAILY Qty: 30 4RF Senior Probiotic 15 billion cell capsule 15,000 mmu cells PO .2 times day Qty: 60 1RF Rx Instructions: administer with a meal ciprofloxacin-dexamethasone [Ciprodex] 0.3-0.1 % drops,suspension 4 drp otic (ear) BID Qty: 7.5 12RF Rx Instructions: Apply 4 drops to the left ear twice daily sulfamethoxazole-trimethoprim [Bactrim DS] 800-160 mg tablet 1 tab PO BID 60 Days Qty: 120 0RF ofloxacin 0.3 % drops 4 drp otic (ear) BID 90 Days Qty: 10 5RF clotrimazole-betamethasone 1-0.05 % cream 1 applic topical BID Qty: 45 1RF Rx Instructions: apply 2 times daily to affected area Discharge Orders: Discharge ED (Routine); Ordered 10/29/21 Ordered By: Zane Heath Referrals: Yohana Adair MD [Primary Care Provider] - Discharge Diet: Usual diet Discharge Activity: Resume usual activity Activity Restrictions/Additional Instructions: Follow-up with Dr. Jiang as scheduled Coding Level of Care Code ED Electrical Drafter for Leigh Ann Cummings
== END 2021-10-29 08:31 | disposition home or self-care (01) ==
PROVIDERS: Emergency Provider Nurse Practitioner Family; PCP Family Medicine
DX: H70.12 Chronic mastoiditis, left ear (principal); H72.92 Unspecified perforation of tympanic membrane, left ear
CPT/HCPCS: 99281

== ENCOUNTER → 2021-11-23 11:09 | Outpatient (BNVA) | payer OTHER, SELFPAY | PROVIDERS: PCP Family Medicine; Visit Provider Otolaryngology | DX: H70.12 Chronic mastoiditis, left ear (principal); H66.92 Otitis media, unspecified, left ear; H72.12 Attic perforation of tympanic membrane, left ear; J32.0 Chronic maxillary sinusitis | CPT/HCPCS: 99214 ==

== ENCOUNTER → 2021-11-30 17:18 | Outpatient (BNVA) | payer MEDICARE, OTHER, SELFPAY | PROVIDERS: PCP Family Medicine; Visit Provider Nurse Practitioner Family | DX: L30.9 Dermatitis, unspecified (principal); R07.9 Chest pain, unspecified; R55 Syncope and collapse; R06.00 Dyspnea, unspecified; W57.XXXA Bitten or stung by nonvenomous insect and other nonvenomous arthropods, initial encounter | CPT/HCPCS: 80053; 86618; 86666; 86757 ==

== ENCOUNTER → 2021-12-01 16:45 | Outpatient (BNVA) | payer OTHER, MEDICARE, SELFPAY | PROVIDERS: PCP Family Medicine; Visit Provider Nurse Practitioner Family | DX: R73.9 Hyperglycemia, unspecified (principal) | CPT/HCPCS: 83036 ==

== ENCOUNTER 2021-12-30 09:56 | Outpatient (CLI) | payer MEDICARE, OTHER, SELFPAY ==
--- NOTE | 2021-12-30 10:00 | CT_ITS ---
WS: [id number] CT SINUSES TECHNIQUE: Noncontrast CT of the paranasal sinuses with coronal and sagittal reformatted images. CLINICAL INFORMATION: chronic sinusitis COMPARISON: None. DLP: 387.[address] scans at [facility] use at least one of these dose optimization techniques: automated e xposure control; mA and/or kV adjustment per patient size (includes targeted exams where dose is matc hed to clinical indication); or iterative reconstruction. FINDINGS: Mild nasal septal deviation measuring 3 to 4 mm. Mild mucosal thickening in the ethmoid air cells. Ma xillary sinuses are well aerated. Mild mucosal thickening in the maxillary sinuses measuring 4 mm on the LEFT. Frontal sinuses are well aerated. Mild mucosal thickening in the frontal ethmoidal recesses . Sphenoid sinus is well aerated. Sphenoid ostia appear patent. Mild narrowing of the ostiomeatal uni ts are patent. Mild mucosal thickening LEFT mastoid air cells. RIGHT mastoid air cells well aerated. Mastoid tips ar e not included on today's examination. Normal posterior nasopharynx. Cavernous carotid calcification. CT/CT sinus wo con* [id number] IMPRESSION: 1. Mild LEFT to RIGHT nasal septal deviation measuring 3 to 4 mm. 2. Mild mucosal thickening ethmoid air cells. Mild mucosal thickening along th e frontal ethmoidal recesses. Frontal sinuses are well aerated. 3. Mild mucosal thickening LEFT greater than RIGHT maxillary sinus measuring 4 mm in the LEFT maxillary sinus. 4. Sphenoid sinuses and sphenoid ostia are patent. 5. Mild mucosal thickening partially visualized LEFT mastoid air cells. 6. Normal posterior nasopharynx.
--- NOTE | 2021-12-30 10:06 | USCV_ITS ---
Paul Rivero Age: 86 Gender: M : 1935 Exam Date: 12/30/2021 10:27 Ordering Phys: Isaura Sung MD Technologist: KALEIGH Exam [place] [facility] [place] Indication: DIZZINESS Risk Factors: Previous Vascular Surgery: Right Brachial BP: / Left Brachial BP: / Right Left Velocity (cm/s) Spectral Plaque Velocity (cm/s) Spectral Plaque Syst/Diast Broadening Syst/Diast Broadening 72.80/ 12.10 Prox CCA 107.00/ 20.30 100.30/17.60 Mid CCA 103.60/ 25.40 68.40/ 13.20 Distal CCA 103.80/ 14.40 66.70/ 19.70 Prox ICA 67.80 / 13.70 56.80/ 16.90 Mid ICA 57.10 / 16.50 67.60/ 20.30 Distal ICA 63.70 / 18.70 103.40 ECA 83.40 0.67 ICA/CCA 0.63 Antegrade Vertebral Antegrade 65.30/ 17.10 cm/s 0.00 / 10.30 cm/s Tri Subclavian Tri 120.4 153.3 0 0 FINDINGS Comparison:. 11/24/20. No significant elevation of systolic or diastolic velocities. Waveforms are normal. Mild tortuosity and atherosclerosis. Antegrade vertebral arteries. CONCLUSIONS No interval change in stenosis since prior exam. Bilateral ICA stenosis less than 50%. Dr. Aracelis Rivas DO (Electronically Signed) Final Date: 30 December 2021 14:41 S
== END 2021-12-30 09:57 | disposition home or self-care (01) ==
LOC: RAD 09:58
PROVIDERS: PCP Family Medicine; Visit Provider Family Medicine
DX: J32.0 Chronic maxillary sinusitis (principal); I65.22 Occlusion and stenosis of left carotid artery
CPT/HCPCS: 70486; 93880

== ENCOUNTER → 2022-02-01 13:58 | Outpatient (BNVA) | payer MEDICARE, OTHER, SELFPAY | PROVIDERS: PCP Family Medicine; Visit Provider Internal Medicine | DX: R06.00 Dyspnea, unspecified (principal); R07.9 Chest pain, unspecified; I10 Essential (primary) hypertension; E78.5 Hyperlipidemia, unspecified | CPT/HCPCS: 93005; 99204 ==

== ENCOUNTER → 2022-02-15 09:17 | Outpatient (BNVA) | payer MEDICARE, OTHER, SELFPAY | PROVIDERS: PCP Family Medicine; Visit Provider Otolaryngology | DX: J32.0 Chronic maxillary sinusitis (principal); J34.2 Deviated nasal septum; J34.3 Hypertrophy of nasal turbinates | CPT/HCPCS: 99213 ==

== ENCOUNTER → 2022-03-09 15:22 | Outpatient (BNVA) | payer MEDICARE, OTHER, SELFPAY | PROVIDERS: PCP Family Medicine; Visit Provider Otolaryngology | DX: J32.0 Chronic maxillary sinusitis (principal); J34.2 Deviated nasal septum; J34.3 Hypertrophy of nasal turbinates; H70.12 Chronic mastoiditis, left ear; H66.92 Otitis media, unspecified, left ear | CPT/HCPCS: 99213 ==

== ENCOUNTER 2022-03-10 15:25 | Outpatient (CLI) | payer MEDICARE, OTHER, SELFPAY ==
--- NOTE | 2022-03-10 15:15 | USCV_ITS ---
Paul Rivero Age: 86 Gender: M : 1935 Exam Date: 03/10/2022 15:42 Ordering Phys: Zbigniew Bennett M.D ([email or web address]) Technologist: Lori Park [place] [facility] [place]: dyspnea BP: 120 / 60 HR: 63 Rhythm: Sinus Technical Quality: Fair MEASUREMENTS (Male / Female) Normal Values 2D ECHO LV Diastolic Diameter PLAX 4.0 cm 4.2 - 5.9 / 3.9 - 5.3 cm LV Systolic Diameter PLAX 2.8 cm IVS Diastolic Thickness 1.3 cm 0.6 - 1.0 / 0.6 - 0.9 cm IVS Systolic Thickness 1.7 cm LVPW Diastolic Thickness 1.5 cm 0.6 - 1.0 / 0.6 - 0.9 cm LVPW Systolic Thickness 2.0 cm LVOT Diameter 2.1 cm LV Ejection Fraction 2D Teich 56.7 % LV Ejection Fraction MOD 2C 74.8 % LV Ejection Fraction 2C AL 78.7 % LA Diameter 2.7 cm LA Width 3.2 cm LA Height 5.5 cm RA Width 3.7 cm RA Height 4.8 cm Aorta at Sinotubular Diameter 3.3 cm IVC Diameter 2.3 cm M-MODE MV E Point Septal Separation 0.5 cm DOPPLER AV Peak Velocity 120.0 cm/s LVOT Peak Velocity 114.0 cm/s AV Area Cont Eq vti 3.5 cm squared AV Area Cont Eq pk 3.3 cm squared MV Peak Velocity 75.0 cm/s MV Area PHT 2.2 cm squared Mitral E to A Ratio 0.8 MV E' Velocity 33.0 cm/s Mitral E to MV E' Ratio 13.3 Mitral E to LV E' Lateral Ratio 13.3 Mitral E to LV E' Septal Ratio 13.6 TR Peak Velocity 73.0 cm/s TR Peak Gradient 2.1 mmHg Right Atrial Pressure 3.0 mmHg Pulmonary Artery Systolic Pressu 5.1 mmHg RV Acceleration Time 0.1 s RV Ejection Time 0.3 s RV AcT/ET 0.3 FINDINGS Left Ventricle Left ventricle is normal in size. LV systolic function is normal with EF 55 to 60%. No regional wall motion abnormalities are seen. Grade 1 diastolic dysfunction Right Ventricle Normal in size and function Right Atrium Normal in size Left Atrium Normal in size Mitral Valve Structurally normal mitral valve. Trace mitral regurgitation. No significant stenosis Aortic Valve Aortic valve is structurally normal. No significant stenosis or regurgitation. Tricuspid Valve Trace tricuspid regurgitation. Insufficient TR jet to evaluate RVSP Pulmonic Valve Not well-visualized Pericardium Normal Aorta Normal in size IVC CONCLUSIONS LV systolic function is normal with EF 55 to 60%. Grade 1 diastolic dysfunction Trace mitral regurgitation. Trace tricuspid regurgitation No comparison studies are available Zbigniew Bennett MD (Electronically Signed) Final Date: 26 March 2022 11:47 S
== END 2022-03-10 15:26 | disposition home or self-care (01) ==
LOC: RAD 15:25
PROVIDERS: PCP Family Medicine; Visit Provider Internal Medicine
DX: I08.1 Rheumatic disorders of both mitral and tricuspid valves (principal); R06.00 Dyspnea, unspecified
CPT/HCPCS: 93306

== ENCOUNTER → 2022-04-11 11:28 | Outpatient (BNVA) | payer MEDICARE, OTHER, SELFPAY | PROVIDERS: PCP Family Medicine; Visit Provider Otolaryngology | DX: H70.12 Chronic mastoiditis, left ear (principal); H66.92 Otitis media, unspecified, left ear; J32.0 Chronic maxillary sinusitis; J34.2 Deviated nasal septum; J34.3 Hypertrophy of nasal turbinates | CPT/HCPCS: 99214 ==

== ENCOUNTER 2022-04-14 05:41 | Day surgery (SDC) | payer MEDICARE, OTHER, SELFPAY ==
[2022-04-13 12:34] VITALS: BMI 32.5
[2022-04-14 06:09] VITALS: BP 142/67; PULSE 55; RESP 18; TEMP 36.1; O2SAT 98
[2022-04-14] MEDS: sodium chloride 0.9% 1,000 ML 30 ML IV (06:31)
--- NOTE | 2022-04-14 06:45 | PC.NURSE ---
Canceled case Patient needs cardiac stress test prior to surgery, it is scheduled 04/25/22. Patient informed by Dr. Jiang and Dr. Carlson. IV removed and patient getting dressed.
--- NOTE | 2022-04-14 06:57 | PM.MISC ---
Miscellaneous Note Note: Patient chart review and history reveals patient suffers from lightheadedness, dyspnea and sweating with very little activity, states even gets sweaty while eating amaral. He is supposed to have a stress test on 04/25. Will postpone procedure until after lexican is completed. Patient in agreeance.
== END 2022-04-14 06:50 | disposition home or self-care (01) ==
PROVIDERS: PCP Family Medicine; Visit Provider Otolaryngology
PROC: (CPT 31231; principal; 2022-04-14 07:00)
PROC: (CPT 30520; 2022-04-14 07:00)
PROC: (CPT 69420; 2022-04-14 07:00)
DX: Z53.9 Procedure and treatment not carried out, unspecified reason (principal)
CPT/HCPCS: J2370; J2704; J3010; J7030

== ENCOUNTER 2022-04-25 08:51 | Outpatient (CLI) | payer MEDICARE, OTHER, SELFPAY ==
[2022-04-25 09:02] VITALS: BMI 33.6
--- NOTE | 2022-04-25 09:06 | ECG_ITS ---
[facility] Test Date: 2022-04-25 Pat Name: Paul Rivero Department: Room: Gender: Male Bunch Maker Hand: : 1935 Requested By: Zbigniew Bennett Order Number: [id number] Maycol MD: Da Isaacs M.D. Interpretive Statements NAME OF STUDY: LEXISCAN SESTAMIBI STRESS TEST INDICATION: Chest Pain RESULTS TO DR BENNETT PROCEDURE: At the baseline, the EKG revealed sinus bradycardia with a rate of 54 bpm. First-degree AV block. Minimal left axis deviation.. The baseline heart was 52 bpm with a blood pressue of 124/101 mm of Hg Lexiscan was infused over a period of 20 seconds. A total of 0.4 milligrams of Lexiscan was infused. The stress phase was continued for a total of 5 minutes. Heart rate at the end of the stress phase was 67 bpm with a blood pressure 121/56 mm of Hg. The EKG at the peak infusion revealed no significant changes. Sestamibi was injected 20 seconds after the Lexiscan infusion. Heart rate at the end of the recovery phase was 66 bpm with a blood pressure of 118/75 mm of Hg. CONCLUSION: 1. No significant EKG changes with the LexiScan infusion 2. No LexiScan induced chest pain or cardiac arrhythmia 3. Normal blood pressure and heart rate response 4. Sestamibi/sestamibi perfusion scan pending; see separate report. Electronically Signed On 04-28-2022 10:07:52 CDT by Da Isaacs M.D. [id number]
--- NOTE | 2022-04-25 09:08 | NMCV_ITS ---
NM esau perf SPECT r/s* [id number] Paul Rivero Age: 86 Gender: M : 1935 Exam Date: 04/25/2022 10:46 Ordering Phys: Zbigniew Bennett M.D ([email or web address]) Technologist: SEEMA Kessler Exam Location: [facility] Indications: CHEST PAIN STRESS TEST Please see separate stress test report in [facility] for full findings IMAGE PROTOCOL Rest/Stress 1 Lexiscan Day Radiopharmaceutical Dose (mCi) Administration Site Administered by Rest: Tc-99m 10.9 IV SEEMA Shukla Sestamibi Stress:Tc-99m 33.0 IV SEEMA Shukla Sestamibi Rest: 25-Apr-2022 60 Discovery 630 Stress: 25-Apr-2022 30 Discovery 630 0.4mg Lexiscan. Images obtained in supine and prone position. SPECT RESULTS Technical Quality: Excellent Raw Data Analysis: Normal Image Corrections: No attenuation or motion correction applied Summed Stress Score: 2 Summed Rest Score: 2 Summed Difference Score: 0 PERFUSION FINDINGS Small sized perfusion abnormality of mild severity of mid inferolateral wall on rest and stress images. There is improved tracer uptake on prone stress images. FUNCTIONAL RESULTS (calculated via Gated SPECT) Stress Image LV EF (%): 76 Stress EDV (mL):83 TID: 0.94 Stress ESV (mL):20 FUNCTIONAL FINDINGS: The left ventricle is normal in size. Transient Ischemia Dilatation of 0.94. There is normal left ventricular systolic function. The left ventricular ejection fraction is normal with a value of 76%. There is hyperdynamic left ventricular wall thickening. Normal end-diastolic end-systolic volumes. IMPRESSIONS 1. Small sized perfusion abnormality of mild severity of mid inferolateral wall. This may represent attenuation artifact or old myocardial infarction in circumflex artery territory. 2. Overall left ventricular systolic function is normal without regional wall motion abnormalities, LVEF=76%. 3. EKG portion of the study will be reported separately. Brie Barcenas MD (Electronically Signed) Final Date: 28 April 2022 09:25 S
[2022-04-25] MEDS: regadenoson 0.4 Mg/5 ml Syringe IVP (11:32)
[2022-04-25 11:50] VITALS: BP 125/75; PULSE 60
== END 2022-04-25 08:52 | disposition home or self-care (01) ==
PROVIDERS: PCP Family Medicine; Visit Provider Internal Medicine
DX: R07.9 Chest pain, unspecified (principal)
CPT/HCPCS: 78452; A9500; J2785

== ENCOUNTER → 2022-06-20 10:19 | Outpatient (BNVA) | payer MEDICARE, OTHER, SELFPAY | PROVIDERS: PCP Family Medicine; Visit Provider Otolaryngology | DX: J34.2 Deviated nasal septum (principal); J34.3 Hypertrophy of nasal turbinates; H66.92 Otitis media, unspecified, left ear; H72.92 Unspecified perforation of tympanic membrane, left ear; H70.92 Unspecified mastoiditis, left ear | CPT/HCPCS: 99214 ==

== ENCOUNTER 2022-07-07 06:52 | Day surgery (SDC) | payer MEDICARE, OTHER, SELFPAY ==
[2022-07-06 09:21] VITALS: BMI 31.7
[2022-07-07] VITALS (19 sets, daily range): BP systolic 130–195; BP diastolic 65–90; PULSE 54–92; RESP 16–18; TEMP 36.1–36.7; O2SAT 92–100
--- NOTE | 2022-07-07 07:31 | W.PM.OPSUD ---
Surgery/Procedure H&P Update DATE OF PROCEDURE: July 07, 2022 DATE H&P PERFORMED: 06/20/22 CHANGES TO PREVIOUS DOCUMENTATION: No changes PREOP DIAGNOSIS: Deviated nasal septum with turbinate hypertrophy and chronic otitis media l PRIMARY INDICATION FOR PROCEDURE: Deviated nasal septum and turbinate hypertrophy and chronic otitis media left ear. Previous sinusitis changes were significantly improved on last CT scan therefore unless something is different at the time of this procedure the sinuses will not be addressed. PLANNED PROCEDURE: Operation Date: 07/07/22 08:40 Proposed Procedures p endoscopic bilateral maxillary antrostomy, septoplasty, bilateral inferior turbinate reduction, myringotomy and left tube insertion - [id number],J32.0,J34.2,Jj34.3,H70.12(Bilateral) - Brian Jiang MD s Septoplasty(Bilateral) - Brian Jiang MD s Myringotomy and Tubes(Left) - Brian Jiang MD
[2022-07-07] MEDS: sodium chloride 0.9% 1,000 ML 30 ML IV (07:48)
--- NOTE | 2022-07-07 08:51 | ANES.PREANE2 ---
Pre-Anesthetic Assessment Height/Weight: Height 1.75 m Weight 97.522 kg Temp Pulse Resp BP Pulse Ox O2 Del Method 97.6 F 54 L 16 146/71 99 07/07/22 07:35 07/07/22 07:35 07/07/22 07:35 07/07/22 07:35 07/07/22 07:35 07/07/22 07:36 Preop Diagnosis: Deviated nasal septum with turbinate hypertrophy and chronic otitis media l Operation Date: 07/07/22 08:40 Proposed Procedures p endoscopic bilateral maxillary antrostomy, septoplasty, bilateral inferior turbinate reduction, myringotomy and left tube insertion - [id number],J32.0,J34.2,Jj34.3,H70.12(Bilateral) - Brian Jiang MD s Septoplasty(Bilateral) - Brian Jiang MD s Myringotomy and Tubes(Left) - Brian Jiang MD Familial anesthetic complications: none Was Beta Rashard taken within 24 hours: N/A Was Clonidine taken within 24 hours: N/A Last intake: Intake Last Liquid Date 07/06/22 Last Liquid Time 22:00 Last Solid Date 07/06/22 Last Solid Time 22:00 Social No alcohol and No tobacco Exam alert, oriented x 3, clear to auscultation bilaterally and regular rate & rhythm Airway Submandibular: within normal limits Cervical ROM: within normal limits Mallampati: Class III Dentition: full CV/HEM Hypertension Metabolic Hyperlipidemia Neuropsych SHISHMAREF IRA Anesthetic Plan ASA status: 3 Anesthesia: General Medications/Allergies Home Medications Medication Instructions Recorded Confirmed Last Taken Type aspirin 81 mg tablet,delayed 81 mg PO DAILY 02/01/22 07/06/22 07/05/22 History release (Adult Low Dose Aspirin) clotrimazole-betamethasone 1 1 applic topical DIRECTED 04/13/22 07/06/22 Unknown History %-0.05 % topical cream senyqfuk-komlaxru-zuzfs acid 400 1 tab PO EVERY OTHER DAY 04/13/22 07/06/22 07/05/22 History mcg-vit K 20 mcg-lycop 300 mcg tablet (Men's Multivitamin) tamsulosin 0.4 mg capsule (Flomax) 0.4 mg PO DAILY PRN prostate 10/06/2307/06/22 06/29/22 History terbinafine HCl 250 mg tablet 250 mg PO DAILY 07/06/22 07/06/22 07/06/22 History Allergies Allergy/AdvReac Type Severity Reaction Status Date / Time amoxicillin [From Augmentin] AdvReac Severe Jaundice Verified 07/06/22 09:17 with increased liver enzymes clavulanic acid AdvReac Severe Jaundice Verified 07/06/22 09:17 [From Augmentin] with increased liver enzymes Current Medications Generic Name Dose Route Start Last Admin Trade Name Liz PRN Reason Stop Dose Admin Sodium Chloride 1,000 mls @ 30 mls/hr 07/07/22 07:30 07/07/22 07:48 Sodium Chloride 0.9% IV 07/08/22 07:29 30 mls/hr .Q24H DENA Administration PFSH Anesthesia Medical History Gout Hyperlipidemia Hypertension Osteoarthritis Prostate CA Prostate cancer Surgical History History of hip replacement, total Bilateral History of knee replacement Left History of orchiectomy Family History Mother , at age 97 Bowel obstruction Father , at age 77 No problems noted. Social History Smoking and tobacco status: never smoked Alcohol intake: current Alcohol intake frequency: holidays/special occasions only Marital status: Number of children: 6 service: Yes branch: [employer] Current occupational status: retired History of recent travel: No Data Anesthesia Cardiac Studies: Echocardiogram 03/10/22 Sestamibi Stress Test (Cardiology) 04/25/22
[2022-07-07] MEDS: ceFAZolin 2,000 MG in sodium chloride 0.9% (plus) 50 ML 100 MG IV (09:13)
[2022-07-07] MEDS: oxymetazoline 0.05% Nasal Spray 15 mL 2 SPRAY NOSTRIL-B (09:30)
[2022-07-07] MEDS: ciprofloxacin-dexameth Otic Susp 7.5 mL Btl 1 DROP EAR-BOTH (09:30)
[2022-07-07] MEDS: neomycin-poly-bacitracin oint 28 gm 1 APPLIC TOPICAL (10:20)
--- NOTE | 2022-07-07 10:27 | P.OP_ITS ---
Operative Report Date of procedure: July 07, 2022 Pre-op diagnosis: Preop Diagnosis Deviated nasal septum with turbinate hypertrophy and chronic otitis media l Post-op diagnosis: Deviated nasal septum and turbinate hypertrophy of the inferior turbinates. Chronic otitis media left ear. Post-op findings: Same Procedure done: Septoplasty. Bilateral inferior turbinate intramural cauterization. Left ear myringotomy with Mayi bobbin tube insertion Implants: Mayi bobbin tube left tympanic membrane. Septal splints. Telfa packs. Specimens removed/disposition: Segments of septal cartilage and bone not forwarded to pathology. Pathology: No pathology specimen Surgeon: Brian Jiang MD Anesthesia: General and Local Estimated blood loss: 15 mL Complications: No complications encountered Findings: Patient with previous history of sinusitis and found to have a deviated nasal septum and compensatory turbinate hypertrophy. Over time with medical treatment the sinusitis condition improved substantially. However his deviated septum and turbinate hypertrophy persisted. Brief History: 86-year-old male patient has suffered with chronic sinusitis as well as deviated nasal septum turbinate hypertrophy and chronic nasal obstruction for many years. He has been treated for chronic sinusitis. He is also been treated for chronic otitis media involving the left ear. Due to medical treatment his sinus condition has improved substantially with minimal swelling residual. His left middle ear continued to be filled with fluid and his tympanic membrane extremely thickened and scarred. He is being brought to the operating room at this time to undergo septoplasty with turbinate reduction and myringotomy with tube insertion in the left ear only. The procedure its risks and complications have been explained in the office setting. These risks included bleeding infection numbness scarring swelling bruising septal hematoma abscess or perforation change in sense of smell nasal dryness recurrent problems need for additional treatment especially with the sinuses and in regards to the myringotomy and tube insertion hearing loss balance system disturbance facial nerve weakness change in taste sensation and overall potential anesthetic risks. With these things understood informed consent was granted and witnessed. Procedure: Description of procedure: Patient was placed on the operating table in the supine position. Adequate general endotracheal tube anesthesia was obtained. He was given antibiotics IV for prophylaxis. A timeout was accomplished identifying the patient date of plan procedure allergies fire risk and medications given. With all in agreement the procedure continued. Patient's nose was prepped initially by packing his nose with cottonoids soaked in 12-hour Afrin. Then these were removed and the nasal hairs were trimmed with scissors. Then the septum and middle and inferior turbinates were infiltrated with local. A total of 13.6 mL of 2% Xylocaine with 1-100,000 epinephrine was utilized for the infiltration. The Afrin packs were reapplied to the nose and the patient was then prepared for the ear procedure. A microscope was used to view through an ear speculum in the right external c anal. The right canal was evaluated simply for complete sake. The canal was found to be normal. Tympanic membrane and middle ear were normal. Attention was then turned to the left ear. Debris was cleaned from the canal with combination of forceps cerumen loop and suction. The tympanic membrane was found to be extremely scarred injected and thick. The only location that the tube could be placed was directly inferiorly. A myringotomy knife was used to create an incision in this area and a vertical direction. I had to go through several layers of tympanic membrane in order to get to the middle ear space. There were definite layers of tympanosclerosis. This opening was widened with combination of the knife and suction and alligator forceps. Then a Mayi bobbin tube was selected and inserted and positioned. Care was taken to make sure that the bobbin tube was positioned so that there was nothing outside the inner flange. The contents of the middle ear were purulent in nature. The area was then irrigated with hydrogen peroxide and then Ciprodex drops were applied with cotton placed at the meatus. Attention was turned back to the nose. The patient was prepped and draped in usual fashion. The Afrin packs were removed from the nose. The area was suctioned. It was felt that the inferior turbinates needed to be outfractured which was done first with a [place] elevator. Then the middle turbinates were infractured with a [place] elevator. This revealed a patent and noninflamed middle meatus area. The uncinate process was normal in appearance. There were no polyps in the area. No purulent discharge. A left hemitransfixion incision was created with a 15 blade carrying it down to the level of the septal cartilage. A mucoperichondrial periosteal flap was raised on the left side in all directions. There was a spur of quadrangular cartilage overriding the maxillary crest to the left side anteriorly. Then there was a fractured component of the septum with the bony septum off to the left side compared to the quadrangular cartilage off to the right side. Careful dissection was carried out around this junction. A large bony spur was resected from the left side inferiorly. The maxillary crest was trimmed. A small piece of motor overriding quadrangular cartilage inferiorly was resected. The bony septum was fractured back and was now in a straight midline position. With this accomplished the septum on the left side was incised to prevent hematoma formation. The left hemitransfixion incision was closed loosely with interrupted 4-0 chromic suture. The [place] elevator was passed through both nasal chambers and found that they did not pass adequately to the nasopharynx without obstruction. Therefore the soft tissue portion of both inferior turbin ates were cauterized intramurally. Once that was accomplished the [place] elevator was able to be passed through both nasal chambers to the nasopharynx without obstruction. 2 septal splints were coated with Neosporin and one was applied each side of the septum. These were sutured in a through and through fashion with 3-0 Prolene. 2 Telfa packs were cut to size coated with Neosporin and one was applied each side of the nose extending up into the middle meatus areas bilaterally. The mouth was suctioned clean. Drapes were removed and the face was cleansed. A drip pad was applied under his nose. The patient was then returned to anesthesia for wake-up and extubation. He tolerated the procedure well and had an estimated blood loss of 15 mL. He arrived in recovery in stable condition.
--- NOTE | 2022-07-07 10:43 | SUR.PHASEI ---
1035 PT TO PACU 5 PT SLEEPS WITH GOOD RESP EFFORT ORAL AIRWAY IN PLACE, VSS MONITOR SR WITH NO ECTOPY, IV TO LT WRIST #18 WITH NS 400ML UP AT KVO RATE PER GRAVITY, ID BRACELET TO LT WRIST , PT ID'D WITH 2 IDENTIFIERS. NASAL DRIP PAD AND NASAL STENTS TO BILAT NOSE D/I . 1038 ORAL AIRWAY OUT PER SUPERVISOR MATTRESS AND BOXSPRINGS AT BEDSIDE, PT AWAKE ALERT KNOWS NAME FOLLOWS COMMANDS. VSS 1045 PT ALERT ORIENTED X 3 PT OPENS BOTH EYES TO COMMAND, VISUALLIZED 4 FINGERS AND THUMB HELD UP BY NURSE, PT VERBALLY DENIES PAIN AND NAUSEA.
--- NOTE | 2022-07-07 10:52 | SUR.PHASEI ---
PT VERBALLY DENIES PAIN AND NAUSEA, PT EYES DABBED WITH DAMP CLOTH . MONITOR SR , PT BP ELEVATED HE BECOMES MORE ALERT, PT HAS BILAT SCDS IN PLACE.
[2022-07-07] MEDS: hyDRALAzine 20 mg/mL INJ 1 mL 10 MG IVP (11:03)
--- NOTE | 2022-07-07 11:07 | SUR.PHASEI ---
1055 PT AWAKE ALERT BP ELEVATED DR LEMONS AWARE, STATED IT MAY BE FROM BILATERAL NASAL PACKING, PT DENIES PAIN, DR CONKLIN NOTIFED AND ORDERS FOR HYDRALAZINE 10 MG SIVP TO BE GIVEN.
[2022-07-07] MEDS: fentaNYL 50 mcg/mL INJ 2mL IVP (11:26)
--- NOTE | 2022-07-07 11:33 | SUR.PHASEI ---
1125 PT C/O OF PAIN OF 8 NOW TO NOSE, PT REPEATEDLY ASKED EARLER AND DENIED PAIN, SEE PAIN MED GIVEN 1133 PT DOZING OFF AND ON, BP REMAINS 171/74 DR CONKLIN NOTIFIED AND IS OK WITH PT GOING TO OPS AREA TO MONITOR BP. VSS OTHERWISE. PT ON RA SATS 92%
[2022-07-07] MEDS: oxyCODONE-APAP 5-325 mg Tablet 1 TAB PO (12:21)
--- NOTE | 2022-07-07 15:16 | ANE.PACU2 ---
Inpatient post-anesthesia follow up: Airway intact: Yes Vital signs: Temperature 98.0 F Pulse Rate 58 Respiratory Rate 16 Blood Pressure 158/82 Pulse Oximetry 96 Oxygen Delivery Me thod Room Air Oxygen Flow Rate 8 Fraction of Inspir ed Oxygen Hydration adequate: Yes Nausea and vomiting: No Pain level: 2 Mental status: Baseline
== END 2022-07-07 13:00 | disposition home or self-care (01) ==
PROVIDERS: PCP Family Medicine; Visit Provider Otolaryngology
PROC: (CPT 31231; principal; 2022-07-07 08:30)
PROC: (CPT 30520; 2022-07-07 08:30)
PROC: (CPT 69420; 2022-07-07 08:30)
DX: J34.2 Deviated nasal septum (principal); J34.3 Hypertrophy of nasal turbinates; H66.92 Otitis media, unspecified, left ear; I10 Essential (primary) hypertension; E78.5 Hyperlipidemia, unspecified; Z79.82 Long term (current) use of aspirin; M19.90 Unspecified osteoarthritis, unspecified site; Z85.46 Personal history of malignant neoplasm of prostate
CPT/HCPCS: 30520; 30930; 69436; J0330; J0360; J0690; J1100; J2405; J2704; J3010; J7030

== ENCOUNTER → 2022-07-15 10:07 | Outpatient (BNVA) | payer MEDICARE, OTHER, SELFPAY | PROVIDERS: PCP Family Medicine; Visit Provider Otolaryngology | DX: Z48.810 Encounter for surgical aftercare following surgery on the sense organs (principal) | CPT/HCPCS: 99024 ==

== ENCOUNTER → 2022-07-28 13:39 | Outpatient (BNVA) | payer MEDICARE, OTHER, SELFPAY | PROVIDERS: PCP Family Medicine; Visit Provider Internal Medicine | DX: I11.9 Hypertensive heart disease without heart failure (principal); R06.00 Dyspnea, unspecified; E78.5 Hyperlipidemia, unspecified | CPT/HCPCS: 99213 ==

== ENCOUNTER → 2022-08-01 13:14 | Outpatient (BNVA) | payer MEDICARE, OTHER, SELFPAY | PROVIDERS: PCP Family Medicine; Visit Provider Otolaryngology | DX: Z48.89 Encounter for other specified surgical aftercare (principal) | CPT/HCPCS: 99024 ==

== ENCOUNTER → 2022-08-04 10:10 | Outpatient (BNVA) | payer MEDICARE, OTHER, SELFPAY | PROVIDERS: PCP Family Medicine; Visit Provider Urology | DX: Z12.5 Encounter for screening for malignant neoplasm of prostate (principal); C61 Malignant neoplasm of prostate | CPT/HCPCS: 84153 ==

== ENCOUNTER → 2022-08-10 14:23 | Outpatient (BNVA) | payer MEDICARE, OTHER, SELFPAY | PROVIDERS: PCP Family Medicine; Visit Provider Urology | DX: C61 Malignant neoplasm of prostate (principal); N50.819 Testicular pain, unspecified; Z90.79 Acquired absence of other genital organ(s) | CPT/HCPCS: 51798; 81003; 99214 ==

== ENCOUNTER 2022-08-17 06:27 | Day surgery (SDC) | payer MEDICARE, OTHER, SELFPAY ==
[2022-08-16 10:30] VITALS: BMI 33.2
[2022-08-17] VITALS (12 sets, daily range): BP systolic 120–137; BP diastolic 60–77; PULSE 62–67; RESP 11–20; TEMP 36.1–36.4; O2SAT 94–100
[2022-08-17] MEDS: sodium chloride 0.9% 1,000 ML 30 ML IV (07:14)
--- NOTE | 2022-08-17 07:55 | P.HPUD_ITS ---
Surgery/Procedure H&P Update DATE OF PROCEDURE: August 17, 2022 DATE H&P PERFORMED: 08/10/22 H&P UPDATE INFORMATION: I have reviewed H&P completed within last 30 days, I have examined patient prior to procedure, No changes to prior documentation and H&[place] is in [facility] [place] on date indicated CHANGES TO PREVIOUS DOCUMENTATION: Status post right orchiectomy previously Appropriate markings done for laterality PREOP DIAGNOSIS: Chronic left orchialgia PLANNED PROCEDURE: Operation Date: 08/17/22 08:10 Proposed Procedures p Left orchiectomy 67901 ,N50.819(Left) - Bladimir Mayfield MD
--- NOTE | 2022-08-17 08:00 | ANES.PREANE2 ---
Pre-Anesthetic Assessment Height/Weight: Height 1.75 m Weight 102.058 kg Temp Pulse Resp BP Pulse Ox O2 Del Method 97.6 F 62 18 137/77 100 08/17/22 06:51 08/17/22 06:51 08/17/22 06:51 08/17/22 06:51 08/17/22 06:51 08/17/22 06:51 Preop Diagnosis: Chronic left orchialgia Operation Date: 08/17/22 08:10 Proposed Procedures p Left orchiectomy 56922 ,N50.819(Left) - Bladimir Mayfield MD Familial anesthetic complications: none Was Beta Rashard taken within 24 hours: N/A Was Clonidine taken within 24 hours: N/A Last intake: Intake Last Liquid Date 08/16/22 Last Liquid Time 20:00 Last Solid Date 08/16/22 Last Solid Time 20:00 Social No alcohol and No tobacco Exam alert, oriented x 3, clear to auscultation bilaterally and regular rate & rhythm Airway Submandibular: within normal limits Cervical ROM: within normal limits Mallampati: Class III Dentition: full CV/HEM Hypertension Metabolic Morbid Obesity [facility] Lower Back Pain and Osteoarthritis/DJD Anesthetic Plan ASA status: 3 Anesthesia: General Medications/Allergies Home Medications Medication Instructions Recorded Confirmed Last Taken Type aspirin 81 mg tablet,delayed 81 mg PO DAILY 02/01/22 08/17/22 08/11/22 History release (Adult Low Dose Aspirin) ksgwemsu-znrqabdu-cyjpx acid 400 1 tab PO EVERY OTHER DAY 04/13/22 08/17/22 08/11/22 History mcg-vit K 20 mcg-lycop 300 mcg tablet (Men's Multivitamin) tamsulosin 0.4 mg capsule (Flomax) 0.4 mg PO DAILY PRN prostate 04/13/22 08/17/22 08/14/22 History terbinafine HCl 250 mg tablet 250 mg PO DAILY 07/06/22 08/17/22 08/14/22 History clotrimazole-betamethasone 1 1 applic topical DIRECTED #45 07/14/22 08/17/22 08/16/22 Rx %-0.05 % topical cream grams Allergies Allergy/AdvReac Type Severity Reaction Status Date / Time Penicillins Allergy Unknown Verified 08/17/22 06:48 amoxicillin [From Augmentin] AdvReac Severe Jaundice Verified 08/10/22 14:38 with increased liver enzymes clavulanic acid AdvReac Severe Jaundice Verified 08/10/22 14:38 [From Augmentin] with increased liver enzymes Current Medications Generic Name Dose Route Start Last Admin Trade Name Liz PRN Reason Stop Dose Admin Sodium Chloride 1,000 mls @ 30 mls/hr 08/17/22 06:45 08/17/22 07:14 Sodium Chloride 0.9% IV 08/18/22 06:44 30 mls/hr .Q24H DENA Administration PFSH Anesthesia Medical History (Updated 08/10/22 @ 15:19 by Bladimir Mayfield MD) Gout Hyperlipidemia Hypertension Osteoarthritis Prostate CA Prostate cancer Surgical History (Updated 08/10/22 @ 15:20 by Bladimir Mayfield MD) History of hip replacement, total Bilateral History of knee replacement Left History of orchiectomy Hx of sinus surgery Family History Mother , at age 97 Bowel obstruction Father , at age 77 No problems noted. Social History Smoking and tobacco status: never smoked Alcohol intake: current Alcohol intake frequency: holidays/special occasions only Marital status: Number of children: 6 service: Yes branch: [employer] Current occupational status: retired History of recent travel: No Data Anesthesia Cardiac Studies: Echocardiogram 03/10/22 Sestamibi Stress Test (Cardiology) 04/25/22
[2022-08-17] MEDS: levofloxacin-dextrose 5 % 500 MG/100 ML PREMIX 100 MG IV (08:07)
--- NOTE | 2022-08-17 09:18 | PC.NURSE ---
Awake. air way removed
--- NOTE | 2022-08-17 09:37 | P.OP_ITS ---
Operative Report Date of procedure: August 17, 2022 Pre-op diagnosis: Chronic left orchialgia Post-op diagnosis: Chronic left orchialgia Procedure done: 1. Left scrotal orchiectomy Implants: None Specimens removed/disposition: Left testicle partial spermatic cord Pathology: Left testicle partial spermatic cord Surgeon: Chaparro Estimated blood loss: <10 cc Urine output: Not measured Complications: None Findings: Anesthesia: General Condition: Stable Disposition: PACU Intraoperative findings: * Grossly normal-appearing testicle. There was a lot of scarring around it though. Brief History: Paul is a very pleasant 86-year-old white male with a >60-year history of intermittent and at times very severe bilateral testalgia and epididymalgia. He has undergone multiple procedures on the right side with ultimately completion orchiectomy after partial epididymectomy total lipid benign etc. He later developed increasing pain on the left side and has gone through similar procedures up to the point of orchiectomy. He is pretty debilitated by the pa in. Ultimately he elected and requested left completion orchiectomy. We reviewed all the pertinent issues especially with hormonal replacement therapy options etc. Also discussed phantom pain risks. He was adamant about proceeding Procedure: After routine preoperative evaluation examination and obtaining of informed consent he was taken to the operating suite on 08/17/2022 where general anesthesia was administered without difficulty after appropriate timeout was performed, SCDs confirmed to be functioning, preoperative antibiotics administ ered, beta-stefanie protocol confirmed. Prepped and draped in usual sterile fashion in supine position paying careful attention to avoiding pressure points. Laterality was confirmed. A midline scrotal incision was made over the left testicle and the incision was taken down through the skin and subcutaneous tissue to the tunica vaginalis which was dissected from the scrotal wall tissues. There was a fair amount of adhesions from prior surgeries. The cord was developed using electrocautery and sharp dissection. Cord cremasteric muscles were divided with electrocautery and the cord was then doubly clamped and 2 packets then divided between the clamps. The 2 packets were each doubly ligated. Meticulous hemostasis was confirmed. The wound was confirmed to be hemostatic. It was copiously irrigated and then closed in layers utilizing several interrupted 3-0 Vicryl's to close the deep space, 3-0 Vicryl for the dartos running layer and then 4-0 Vicryl for the subcuticular skin closure with Dermabond applied on the surface of the skin. Fluffed dressings were placed as well as a scrotal support. He tolerated procedure well without complications and was awakened in the operating room and returned to the cover room in stable condition. PLANS: 1. Follow-up in about 2 months for postop check sooner if he has any questions or concerns 2. Anticipate discharge from outpatient surgery today
--- NOTE | 2022-08-17 15:58 | ANE.PACU2 ---
Inpatient post-anesthesia follow up: Airway intact: Yes Vital signs: Temperature 97.4 F Pulse Rate 66 Respiratory Rate 18 Blood Pressure 123/60 Pulse Oximetry 98 Oxygen Delivery Me thod Room Air Oxygen Flow Rate 8 Fraction of Inspir ed Oxygen Hydration adequate: Yes Nausea and vomiting: No Pain level: 2 Mental status: Baseline
== END 2022-08-17 10:26 | disposition home or self-care (01) ==
PROVIDERS: PCP Family Medicine; Visit Provider Urology
PROC: (CPT 54520; principal; 2022-08-17 08:10)
DX: N50.812 Left testicular pain (principal); I10 Essential (primary) hypertension; E66.01 Morbid (severe) obesity due to excess calories; Z68.33 Body mass index [BMI] 33.0-33.9, adult; Z79.82 Long term (current) use of aspirin; E78.5 Hyperlipidemia, unspecified; Z85.46 Personal history of malignant neoplasm of prostate
CPT/HCPCS: 54520; 88305; J1100; J1956; J2405; J2704; J3010; J3490; J7030

== ENCOUNTER → 2022-09-12 10:59 | Outpatient (BNVA) | payer MEDICARE, OTHER, SELFPAY | PROVIDERS: PCP Family Medicine; Visit Provider Otolaryngology | DX: H70.12 Chronic mastoiditis, left ear (principal); H66.92 Otitis media, unspecified, left ear; Z96.22 Myringotomy tube(s) status | CPT/HCPCS: 99213 ==

== ENCOUNTER 2022-09-30 09:17 | Outpatient (CLI) | payer MEDICARE, OTHER, SELFPAY ==
--- NOTE | 2022-09-30 09:30 | CT_ITS ---
WS: [id number] CT TEMPORAL BONES TECHNIQUE: Noncontrast CT of the temporal bones with coronal and sagittal reformatted images. CLINICAL INFORMATION: chronic infection COMPARISON: None. DLP: 336.[address] scans at [facility] use at least one of these dose optimization techniques: automated e xposure control; mA and/or kV adjustment per patient size (includes targeted exams where dose is matc hed to clinical indication); or iterative reconstruction. FINDINGS: Mucosal thickening LEFT greater than RIGHT mastoid tips. Paranasal sinuses are well aerated . Mild polypoid mucosal thickening in the LEFT greater than RIGHT maxillary sinuses. Degenerative varun nges at the C1-C2 articulation with pannus formation. RIGHT: Trace mucosal thickening RIGHT mastoid tip. Normal external auditory canal. Ossicles are normal in ap pearance. Middle ear is well aerated. Normal tegmen tympani. Semicircular canals and cochlea are norm al in appearance. Prussak's space is normal. Normal inner ear structures. Normal vestibular aqueduct. Facial nerve recess is normal. LEFT: Mild mucosal thickening LEFT mastoid tip. Normal external auditory canal. Ossicles are normal in appe arance. Middle ear is well aerated. Chronic thinning posterior tegmen tympani. Semicircular canals an d cochlea are normal in appearance. Prussak's space is normal. Normal inner ear structures. Normal ve stibular aqueduct. Facial nerve recess is normal. CT/CT temporal bone wo con* [id number] IMPRESSION: 1. Mild mucosal thickening LEFT greater than RIGHT mastoid tips similar to pre vious. Chronic appearing sclerosis involving the LEFT mastoid air cells with co alescence compatible with chronic infection similar to previous. 2. Normal-appearing LEFT middle ear today. Mild thickening and retraction of t he LEFT tympanic membrane. No soft tissue middle ear lesions. 3. Mild thinning of the LEFT tegmen tympani unchanged. 4. Mild polypoid mucosal thickening maxillary sinuses. 5. Normal inner ear structures bilaterally. 6. 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
== END 2022-09-30 09:18 | disposition home or self-care (01) ==
LOC: RAD 09:25
PROVIDERS: PCP Family Medicine; Visit Provider Otolaryngology
DX: H70.12 Chronic mastoiditis, left ear (principal); M47.812 Spondylosis without myelopathy or radiculopathy, cervical region
CPT/HCPCS: 70480

== ENCOUNTER → 2022-10-05 14:14 | Outpatient (BNVA) | payer MEDICARE, OTHER, SELFPAY | PROVIDERS: PCP Family Medicine; Visit Provider Otolaryngology | DX: H70.13 Chronic mastoiditis, bilateral (principal); H69.82 Other specified disorders of Eustachian tube, left ear; H91.93 Unspecified hearing loss, bilateral | CPT/HCPCS: 99213 ==

== ENCOUNTER → 2022-10-12 13:49 | Outpatient (BNVA) | payer MEDICARE, OTHER, SELFPAY | PROVIDERS: PCP Family Medicine; Visit Provider Urology | DX: Z98.890 Other specified postprocedural states (principal); N50.819 Testicular pain, unspecified | CPT/HCPCS: 99024 ==

== ENCOUNTER → 2022-12-26 10:48 | Outpatient (BNVA) | payer MEDICARE, OTHER, SELFPAY | PROVIDERS: PCP Family Medicine; Visit Provider Family Medicine | DX: B35.1 Tinea unguium (principal); C61 Malignant neoplasm of prostate; E78.5 Hyperlipidemia, unspecified; I10 Essential (primary) hypertension; K76.0 Fatty (change of) liver, not elsewhere classified; R53.83 Other fatigue; Z90.79 Acquired absence of other genital organ(s); R06.00 Dyspnea, unspecified | CPT/HCPCS: 80053; 80061; 82306; 82607; 83540; 84443; 85025; G0103 ==

== ENCOUNTER → 2023-01-10 10:14 | Outpatient (BNVA) | payer MEDICARE, OTHER, SELFPAY | PROVIDERS: PCP Family Medicine; Visit Provider Otolaryngology | DX: H66.92 Otitis media, unspecified, left ear (principal); H70.12 Chronic mastoiditis, left ear | CPT/HCPCS: 99213; 99214 ==

== ENCOUNTER → 2023-01-12 09:43 | Outpatient (BNVA) | payer MEDICARE, OTHER, SELFPAY | PROVIDERS: PCP Family Medicine; Visit Provider Podiatrist Foot & Ankle Surgery | DX: B35.1 Tinea unguium (principal); L60.8 Other nail disorders; M20.41 Other hammer toe(s) (acquired), right foot; M20.42 Other hammer toe(s) (acquired), left foot | CPT/HCPCS: 99204 ==

== ENCOUNTER → 2023-02-09 14:31 | Outpatient (BNVA) | payer MEDICARE, OTHER, SELFPAY | PROVIDERS: PCP Family Medicine; Visit Provider Dermatology | DX: L82.1 Other seborrheic keratosis (principal); L81.4 Other melanin hyperpigmentation; L57.8 Other skin changes due to chronic exposure to nonionizing radiation; D18.01 Hemangioma of skin and subcutaneous tissue; L82.0 Inflamed seborrheic keratosis; L53.8 Other specified erythematous conditions; L29.8 Other pruritus; D48.5 Neoplasm of uncertain behavior of skin; L57.0 Actinic keratosis | CPT/HCPCS: 17000; 17003; 17110; 69100; 99203 ==

== ENCOUNTER → 2023-02-21 09:50 | Outpatient (BNVA) | payer MEDICARE, OTHER, SELFPAY | PROVIDERS: PCP Family Medicine; Visit Provider Dermatology | DX: C44.212 Basal cell carcinoma of skin of right ear and external auricular canal (principal) | CPT/HCPCS: 13152; 17311; 17312 ==

== ENCOUNTER → 2023-02-24 12:26 | Outpatient (BNVA) | payer MEDICARE, OTHER, SELFPAY | PROVIDERS: PCP Family Medicine; Visit Provider Family Medicine | DX: R53.83 Other fatigue (principal); K76.0 Fatty (change of) liver, not elsewhere classified; R06.00 Dyspnea, unspecified; T14.8XXA Other injury of unspecified body region, initial encounter; W57.XXXA Bitten or stung by nonvenomous insect and other nonvenomous arthropods, initial encounter | CPT/HCPCS: 80053; 82306; 82607; 83540; 84403; 84443; 85025; 86308; 86618; 86666; 86757 ==

== ENCOUNTER → 2023-04-10 11:17 | Outpatient (BNVA) | payer MEDICARE, OTHER, SELFPAY | PROVIDERS: PCP Family Medicine; Visit Provider Otolaryngology | DX: H66.92 Otitis media, unspecified, left ear (principal); H72.92 Unspecified perforation of tympanic membrane, left ear | CPT/HCPCS: 99213 ==

== ENCOUNTER → 2023-07-18 12:45 | Outpatient (BNVA) | payer MEDICARE, OTHER, SELFPAY | PROVIDERS: PCP Family Medicine; Visit Provider Dermatology | DX: B35.1 Tinea unguium (principal); I87.2 Venous insufficiency (chronic) (peripheral); D22.39 Melanocytic nevi of other parts of face; L57.0 Actinic keratosis; Z85.828 Personal history of other malignant neoplasm of skin | CPT/HCPCS: 17000; 99213 ==

== ENCOUNTER → 2023-07-27 12:25 | Outpatient (BNVA) | payer MEDICARE, OTHER, SELFPAY | PROVIDERS: PCP Family Medicine; Visit Provider Internal Medicine | DX: R07.89 Other chest pain (principal); R06.00 Dyspnea, unspecified; I10 Essential (primary) hypertension; E78.5 Hyperlipidemia, unspecified | CPT/HCPCS: 99214 ==

== ENCOUNTER → 2023-08-10 08:27 | Outpatient (BNVA) | payer MEDICARE, OTHER, SELFPAY | PROVIDERS: PCP Family Medicine; Visit Provider Otolaryngology | DX: H66.92 Otitis media, unspecified, left ear (principal); H70.12 Chronic mastoiditis, left ear; H66.005 Acute suppurative otitis media without spontaneous rupture of ear drum, recurrent, left ear; H69.82 Other specified disorders of Eustachian tube, left ear; H90.6 Mixed conductive and sensorineural hearing loss, bilateral | CPT/HCPCS: 99213 ==

== ENCOUNTER → 2023-08-24 11:14 | Outpatient (BNVA) | payer MEDICARE, OTHER, SELFPAY | PROVIDERS: PCP Family Medicine; Visit Provider Otolaryngology | DX: H72.92 Unspecified perforation of tympanic membrane, left ear (principal); H66.92 Otitis media, unspecified, left ear; H70.12 Chronic mastoiditis, left ear; J32.0 Chronic maxillary sinusitis; H69.82 Other specified disorders of Eustachian tube, left ear | CPT/HCPCS: 99213 ==

== ENCOUNTER → 2023-09-20 14:45 | Outpatient (BNVA) | payer MEDICARE, OTHER, SELFPAY | PROVIDERS: PCP Family Medicine; Visit Provider Otolaryngology | DX: H66.92 Otitis media, unspecified, left ear (principal); H70.12 Chronic mastoiditis, left ear; J32.0 Chronic maxillary sinusitis; Z96.22 Myringotomy tube(s) status | CPT/HCPCS: 99212 ==

== ENCOUNTER → 2023-10-25 09:01 | Outpatient (BNVA) | payer MEDICARE, OTHER, SELFPAY | PROVIDERS: PCP Family Medicine; Visit Provider Otolaryngology | DX: J32.0 Chronic maxillary sinusitis (principal); H66.92 Otitis media, unspecified, left ear; H70.12 Chronic mastoiditis, left ear; H66.005 Acute suppurative otitis media without spontaneous rupture of ear drum, recurrent, left ear | CPT/HCPCS: 99213; 99214 ==

== ENCOUNTER → 2023-11-16 09:09 | Outpatient (BNVA) | payer MEDICARE, OTHER, SELFPAY | PROVIDERS: PCP Family Medicine; Visit Provider Nurse Practitioner Family | DX: R79.89 Other specified abnormal findings of blood chemistry (principal); C61 Malignant neoplasm of prostate | CPT/HCPCS: 84153; 84403 ==

== ENCOUNTER → 2023-11-20 11:35 | Outpatient (BNVA) | payer MEDICARE, OTHER, SELFPAY | PROVIDERS: PCP Family Medicine; Visit Provider Otolaryngology | DX: H66.92 Otitis media, unspecified, left ear (principal); H72.02 Central perforation of tympanic membrane, left ear; R09.81 Nasal congestion | CPT/HCPCS: 80076; 85025; 99213 ==

== ENCOUNTER 2023-12-26 06:00 | Outpatient (RCR) | payer OTHER, SELFPAY | END 2023-12-31 23:59 | disposition home or self-care (01) | LOC: TPT 06:00 | PROVIDERS: Visit Provider Family Medicine | DX: M54.50 Low back pain, unspecified (principal) | CPT/HCPCS: 97162 ==

== ENCOUNTER 2024-01-01 06:00 | Outpatient (RCR) | payer MEDICARE, OTHER, SELFPAY | END 2024-01-31 23:59 | disposition home or self-care (01) | LOC: TPT 06:00 | PROVIDERS: PCP Family Medicine; Visit Provider Family Medicine | DX: M54.50 Low back pain, unspecified (principal) | CPT/HCPCS: 97110 ==

== ENCOUNTER → 2024-01-16 11:30 | Outpatient (BNVA) | payer MEDICARE, OTHER, SELFPAY | PROVIDERS: PCP Family Medicine; Visit Provider Nurse Practitioner Family | DX: L57.0 Actinic keratosis (principal); Z85.828 Personal history of other malignant neoplasm of skin; I87.2 Venous insufficiency (chronic) (peripheral); B35.1 Tinea unguium; D22.39 Melanocytic nevi of other parts of face; L82.1 Other seborrheic keratosis; L57.8 Other skin changes due to chronic exposure to nonionizing radiation | CPT/HCPCS: 17000; 99213 ==

== ENCOUNTER → 2024-03-05 13:08 | Outpatient (BNVA) | payer MEDICARE, OTHER, SELFPAY | PROVIDERS: PCP Family Medicine; Visit Provider Family Medicine | DX: R79.89 Other specified abnormal findings of blood chemistry (principal) | CPT/HCPCS: 84403 ==

== ENCOUNTER → 2024-07-18 09:48 | Outpatient (BNVA) | payer MEDICARE, OTHER, SELFPAY | PROVIDERS: PCP Family Medicine; Visit Provider Nurse Practitioner Family | DX: I87.2 Venous insufficiency (chronic) (peripheral) (principal); B35.1 Tinea unguium; D22.39 Melanocytic nevi of other parts of face; Z08 Encounter for follow-up examination after completed treatment for malignant neoplasm; Z85.828 Personal history of other malignant neoplasm of skin; D48.5 Neoplasm of uncertain behavior of skin | CPT/HCPCS: 11102; 99213 ==

== ENCOUNTER → 2024-07-25 12:56 | Outpatient (BNVA) | payer MEDICARE, OTHER, SELFPAY | PROVIDERS: PCP Family Medicine; Visit Provider Internal Medicine | DX: I10 Essential (primary) hypertension (principal); R06.00 Dyspnea, unspecified; E78.5 Hyperlipidemia, unspecified | CPT/HCPCS: 99213 ==

== ENCOUNTER → 2024-07-26 08:51 | Outpatient (BNVA) | payer MEDICARE, OTHER, SELFPAY | PROVIDERS: PCP Family Medicine; Visit Provider Specialist | DX: R20.0 Anesthesia of skin (principal); R20.2 Paresthesia of skin; G56.00 Carpal tunnel syndrome, unspecified upper limb | CPT/HCPCS: 95910 ==

== ENCOUNTER → 2024-10-24 10:28 | Outpatient (BNVA) | payer MEDICARE, OTHER, SELFPAY | PROVIDERS: PCP Family Medicine; Visit Provider Family Medicine | DX: R79.89 Other specified abnormal findings of blood chemistry (principal); Z00.00 Encounter for general adult medical examination without abnormal findings; Z85.46 Personal history of malignant neoplasm of prostate; Z12.5 Encounter for screening for malignant neoplasm of prostate | CPT/HCPCS: 80053; 84403; 85025; G0103 ==

== ENCOUNTER 2025-02-11 14:41 | Outpatient (CLI) | payer OTHER, SELFPAY ==
--- NOTE | 2025-02-11 14:52 | US_ITS ---
WS: [id number] US pelvic complete* [id number] HISTORY: BPH SYMPTOMS WITH LUTS COMPARISON: None available. Urinary bladder is moderately well distended. No intraluminal filling defect. Prevoid volume: 72 mL. Postvoid volume: 13 mL. Prostate gland does not appear to be dilated. Very slight heterogeneity within the visualized prostate gland measures 2.9 x 2.5 x 3.6 cm. US/US pelvic complete* [id number] IMPRESSION: 1. No significant post void residual in the urinary bladder. 2. No intraluminal filling defect in the bladder.
== END 2025-02-11 14:42 | disposition home or self-care (01) ==
LOC: RAD 14:43
PROVIDERS: PCP Family Medicine; Visit Provider Nurse Practitioner Family
DX: N40.1 Benign prostatic hyperplasia with lower urinary tract symptoms (principal)
CPT/HCPCS: 76856

== ENCOUNTER → 2025-03-31 13:52 | Outpatient (BNVA) | payer OTHER, SELFPAY | PROVIDERS: PCP Family Medicine; Visit Provider Orthopaedic Surgery | DX: G56.03 Carpal tunnel syndrome, bilateral upper limbs (principal) | CPT/HCPCS: G0463 ==

== ENCOUNTER → 2025-04-17 09:41 | Outpatient (BNVA) | payer OTHER, SELFPAY | PROVIDERS: Visit Provider Nurse Practitioner Family | DX: L21.8 Other seborrheic dermatitis (principal); L73.8 Other specified follicular disorders; L85.3 Xerosis cutis; D22.39 Melanocytic nevi of other parts of face; Z08 Encounter for follow-up examination after completed treatment for malignant neoplasm; Z85.828 Personal history of other malignant neoplasm of skin; L82.0 Inflamed seborrheic keratosis; L29.89 Other pruritus; L53.8 Other specified erythematous conditions; R20.8 Other disturbances of skin sensation; L57.0 Actinic keratosis | CPT/HCPCS: 17000; 17110; 99214 ==